=== PATIENT | male | born 1940 | race Caucasian/White ===

== ENCOUNTER → 2017-07-31 | Day surgery (SDC) | payer MEDICARE, BC ==
[~2017-07-31] MED LIST: ACUVITE; ALBUTEROL2.5 MG/31 INH; ARICEPT 5 MG TAB5 MG PO; ARICEPT10 M1 PO; ASPIR 8181 MG PO; ATIVAN0.5 MG PO; BALANCED B-100100 MG PO; CALCIUM 500 +1 EAC5 PO; COLACE100 MG PO; ELIQUIS5 MG PO; ESOMEPRAZOLE MA20 MG PO; FISH OIL 1,0001 EAC9 PO; FLOMAX0.4 MG PO; FOLBIC RF TABL1 EACH PO; FUROSEMIDE 40 M40 M1 PO; HYDROCODON-ACE1 EAC8 PO; KEFLEX500 M1 PO; KEPPRA XR500 MG PO; LEXAPRO 10 MG T10 M2 PO; LEXAPRO20 MG PO; LOPRESSOR25 PO; MAGNESIUM400 MG PO; MAVIK4 MG PO; MELATONIN3 MG PO; MIRALAX17 GM PO; NAMENDA XR7 MG PO; NEXIUM40 MG PO; NORCO 5-325 TA1 EACH PO; OCUVITE TABLET1 EAC1 PO; OLANZAPINE5 MG PO; OMEGA-31000 M1 PO; PERCOCET PO; POTASSIUM CHLO20 ME2 PO; REMERON15 MG PO; SENOKOT-S1 TA1 PO; SIMVASTATIN20 MG PO; SIMVASTATIN40 MG PO; SORINE 80 MG TA80 M1 PO; TRANDOLAPRIL4 MG PO; TYLENOL325 MG PO; VITAMIN B-12100 MCG PO; VITAMINC500 PO; VOLTAREN GEL 1100 G2 TOP; WELLBUTRIN 75 M75 M1 PO; XANAX 0.5 MG0.5 MG PO; ZINC10 MG PO; ZOLOFT25 MG PO
[2017-07-31 06:39] LABS: HEMATOCRIT 43.3 % (42.0-52.0); HEMOGLOBIN 14.1 gm/dL (14.0-18.0); MCH 29.5 pg (26.0-34.0); MCHC 32.6 g/dL (28.0-37.0); MCV 90.6 fL (80.0-100.0); MPV 8.1 fl. (7.2-11.1); RBC 4.78 mil/uL (4.50-6.00); RDW-CV 16.1 % (10.5-14.5); WBC 7.7 thou/uL (4.0-11.0)
[2017-07-31 06:57] LABS: CREATININE 0.9 mg/dL (0.6-1.3)
[2017-07-31 07:01] LABS: ALBUMIN 3.6 g/dL (3.4-5.0); TOTAL BILIRUBIN 0.8 mg/dL (<0.1-1.0); TOTAL PROTEIN 7.4 g/dL (6.4-8.2)
--- NOTE | 2017-07-31 15:44 | EKG ---
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: [facility] : 1940 Requested By: Ciarra Russ Order Number: [id number] MD: Lauri Blackwell Measurements Intervals [place] Rate: 59 P: 57 ID: 175 QRS: 84 QRSD: 101 T: 19 QT: 443 QTc: 439 Interpretive Statements Sinus rhythm Probable left atrial enlargement Borderline right axis deviation Baseline wander in lead(s) V6 Compared to ECG 08/03/2016 02:06:53 No significant changes Electronically Signed On 07-31-2017 15:44:44 DIGITAL RESEARCH ANALYST by Lauri Blackwell [email or web address] <ELECTRONICALLY SIGNED> By: Lauri Blackwell MD, [facility] 07/31/17 1544 0626 0626 Lauri Blackwell MD, [facility] /EPI
--- NOTE | 2017-08-01 12:29 | S ---
[address] [address] SURGICAL PATH RPT PROCEDURE Name: DANIE COFFEY Room: [facility]#: [id number] Admission: 07/31/17 Date of : 44 Discharge: Report #: [id number] Path Case #: [id number] PATHOLOGY REPORT COLLECTION DATE: 07/31/2017 RECEIVED DATE: 07/31/2017 SUBMITTING PHYS: Dr. Ciarra Russ OTHER PHYS: Dr. Gisell Gifford SPECIMEN(S) RECEIVED: A.Left cord lipoma * * * * * * * * * * * * FINAL DIAGNOSIS: Fibroadipose tissue "left cord lipoma": - Mature lobulated fibroadipose tissue consistent with a lipoma. (SHA:pit; 08/01/2017) PATHOLOGIST: Nick Gr M.D. REPORT ELECTRONICALLY SIGNED BY: Nick Gr M.D. DATE/TIME: 08/01/2017 12:28 * * * * * * * * * * * * GROSS PATHOLOGY: Received in formalin labeled "Danie Coffey, left cord lipoma," are two segments of fibroadipose tissue measuring 5.7 x 2.0 x 0.9 cm in aggregate dimensions. No nodules or lesions are identified. Hanger tissue is submitted in cassette A1. (SDY; 07/31/2017) CLINICAL HISTORY: Bilateral inguinal hernia INITIAL CPT CODE(S): A; 71611 Professional services performed by [facility] at [facility], [address] [place] [address]. Technical services performed by [facility] at [address] [place] [address], [address], [place] [address]. [facility] [address] [address] PHONE: [phone] [address] SURGICAL PATH RPT PROCEDURE Name: DANIE COFFEY Room: [facility].#: [id number] Admission: 07/31/17 Date of : 44 Discharge: Report #: [id number] Path Case #: [id number] DIRECTOR: Servando Piña M.D. * * * END OF REPORT * * *
--- NOTE | 2017-08-09 11:35 | OP ---
[facility] [address] [place] [address] OPERATIVE REPORT Name: SHERIN COFFEY Room: [facility]#: [id number] Admission: 07/31/17 Attend Phys: Ciarra Russ MD Discharge: Date of : 42 Report #: [id number] THIS REPORT FOR: //name// CC: Ciarra Gifford MD DATE OF SERVICE: 07/31/2017 PREOPERATIVE DIAGNOSIS: Bilateral inguinal hernia. POSTOPERATIVE DIAGNOSIS: Bilateral reducible and primary direct inguinal hernia. PROCEDURE: Bilateral inguinal hernia repair with mesh. SURGEON: Ciarra Russ M.D. NETWORK SUPPORT ANALYST: Joey Valdez DO ESTIMATED BLOOD LOSS: 20 mL. COMPLICATIONS: None. FINDINGS: Bilateral direct hernia with cord lipoma. SPECIMEN: Cord lipoma. DESCRIPTION OF PROCEDURE: Fully informed consent was obtained preoperatively, full discussion of risks, benefits, alternatives, questions answered. The patient understood risk of bleeding, infection, chronic pain, recurrence, injury to bowel or bladder, injury to cord structures, catastrophic complications up to and including cardiopulmonary failure and . The patient understood and wished to proceed, was present. She was involved with the informed consent and agreed as well. The patient was taken to the operating room. We prepped and draped in standard sterile fashion. We began on the right side. Began by making an incision along Jean-Claude line at the distal third between the ASIS and pubic tubercle, used Bovie to go down through Mary's, which went down to external oblique aponeurosis. A small kimberlee was made in the muscle with scalpel and opened up to the ring with [place] superiorly and inferiorly. The cord was circumferentially dissected. A Arcadia was placed around it, the cremaster away from the cord. I saw no primary indirect or peritoneal hernia sac. There was, however, very large direct reducible hernia defect. Next, I selected the mesh on the right side. The monofilament Bard polypropylene mesh was selected. It was trimmed to fit and anchored at the pubic tubercle with 2-0 Prolene running up the shelving edge. A second 2-0 [place] [address] OPERATIVE REPORT Name: COFFEYSHERIN Room: [facility]#: [id number] Admission: 07/31/17 Attend Phys: Ciarra uRss MD Discharge: Date of : 42 Report #: [id number] pubic tubercle once again and run up the medial side and then they were anchored together posteriorly. Next, I made sure that the overlapping leaflets were trimmed to fit to slightly abut the cord without compressing it. At this point, I irrigated copiously, making sure there was no evidence of bleeding. Next, I closed the external oblique aponeurosis with 2-0 Vicryl, 3-0 Vicryl I used to close Mary's in an interrupted manner. The 4-0 Monocryl was used to close the skin in running subcuticular fashion and Dermabond applied. Process was then repeated for the left hernia with the same findings, but an additional cord lipoma found and resected, and also a Ventrio ST Hernia Patch was trimmed to fit for the left inguinal defect as there were no additional Bard meshes available. The patient tolerated it well. Sponge, needle, instrument counts were correct at the end of the case. <ELECTRONICALLY SIGNED> By: Ciarra Russ MD 08/09/17 1135 1016 1102Dish Russ MD /nt
== END | disposition home or self-care (01) ==
LOC: M.SUR 06:05
PROVIDERS: Surgery
DX: K40.20 Bilateral inguinal hernia, without obstruction or gangrene, not specified as recurrent (principal); D17.6 Benign lipomatous neoplasm of spermatic cord; K64.9 Unspecified hemorrhoids; R56.9 Unspecified convulsions

== ENCOUNTER 2017-08-24 21:55 | Inpatient (IN) | payer MEDICARE, BC ==
[~2017-08-24] VITALS: Ht 172.7 cm; Wt 83.0 kg
[~2017-08-24 21:55] MED LIST changes: -COLACE100 MG PO; -KEFLEX500 M1 PO; -KEPPRA XR500 MG PO; -LEXAPRO 10 MG T10 M2 PO; -NORCO 5-325 TA1 EACH PO
[2017-08-24 22:05] VITALS: BP 161/97
[2017-08-24 22:37] LABS: URINE BILIRUBIN NEGATIVE (Negative); URINE BLOOD TRACE (Negative); URINE CLARITY CLEAR; URINE COLOR YELLOW; URINE GLUCOSE-RANDOM NEGATIVE (Negative); URINE KETONES NEGATIVE (Negative); URINE LEUKOCYTES-REFLEX NEGATIVE (Negative); URINE NITRITE-REFLEX NEGATIVE (Negative); URINE PROTEIN NEGATIVE (Negative); URINE SPECIFIC GRAVITY 1.015 (1.005-1.030); URINE UROBILINOGEN 0.2 E.U./dl (0.2-1.0)
[2017-08-24] MEDS ORDERED: WELLBUTRIN 75 M75 M1 PO (22:52)
[2017-08-24 22:54] LABS: ABSOLUTE BASOPHILS 0.1 thou/uL (0.0-0.2); ABSOLUTE EOSINOPHILS 0.2 thou/uL (0.0-0.7); ABSOLUTE LYMPHOCYTES 1.5 thou/uL (0.8-5.3); ABSOLUTE MONOCYTES 0.9 thou/uL (0.0-1.2); ABSOLUTE NEUTROPHILS 7.2 thou/uL (1.6-8.1); BASOPHILS 0.8 %; HEMATOCRIT 43.4 % (42.0-52.0); HEMOGLOBIN 14.5 gm/dL (14.0-18.0); MCH 30.1 pg (26.0-34.0); MCHC 33.5 g/dL (28.0-37.0); MCV 89.7 fL (80.0-100.0); MONOCYTES 9.2 %; MPV 8.4 fl. (7.2-11.1); NUCLEATED RBCS 0 /100WBC; PLATELET COUNT* 220 thou/uL (150-400); RBC 4.84 mil/uL (4.50-6.00); RDW-CV 15.1 % (10.5-14.5); WBC 9.9 thou/uL (4.0-11.0)
[2017-08-24 23:03] LABS: CALCIUM 8.9 mg/dL (8.5-10.1); CREATININE 0.9 mg/dL (0.6-1.3)
[2017-08-24 23:07] LABS: ALBUMIN 3.7 g/dL (3.4-5.0); TOTAL BILIRUBIN 0.9 mg/dL (<0.1-1.0)
[2017-08-25 02:22] VITALS: BP 143/83
[2017-08-25 03:10] VITALS: BP 152/75
[2017-08-25 07:05] LABS: HEMATOCRIT 40.3 % (42.0-52.0); HEMOGLOBIN 13.3 gm/dL (14.0-18.0); MCH 29.6 pg (26.0-34.0); MCHC 32.9 g/dL (28.0-37.0); MPV 8.2 fl. (7.2-11.1); RBC 4.48 mil/uL (4.50-6.00); WBC 8.8 thou/uL (4.0-11.0)
[2017-08-25 07:18] LABS: ALBUMIN 3.1 g/dL (3.4-5.0); CALCIUM 8.3 mg/dL (8.5-10.1); CREATININE 0.9 mg/dL (0.6-1.3); POTASSIUM 4.2 mmol/L (3.5-5.1); TOTAL BILIRUBIN 0.9 mg/dL (<0.1-1.0); TOTAL PROTEIN 6.9 g/dL (6.4-8.2)
[2017-08-25 07:30] VITALS: BP 129/75
[2017-08-25] MEDS ORDERED: LEXAPRO 10 MG T10 M2 PO (15:13)
[2017-08-25] MEDS ORDERED: ARICEPT 5 MG TAB5 MG PO (15:13)
[2017-08-25 16:51] VITALS: BP 130/71
[2017-08-25 20:10] VITALS: BP 114/60
[2017-08-26 05:31] LABS: CALCIUM 7.9 mg/dL (8.5-10.1); CREATININE 0.9 mg/dL (0.6-1.3); MAGNESIUM 1.9 mg/dL (1.8-2.4); POTASSIUM 4.5 mmol/L (3.5-5.1); TOTAL BILIRUBIN 0.9 mg/dL (<0.1-1.0); TOTAL PROTEIN 6.2 g/dL (6.4-8.2)
[2017-08-26 08:30] VITALS: BP 128/68
[2017-08-26 11:00] LABS: CHOLESTEROL 121 mg/dL (<200); HDL CHOLESTEROL 37 mg/dL (>40); LDL CHOLESTEROL 74 mg/dL (<100); TC:HDL 3.3 Ratio (Not establshd); TRIGLYCERIDE 50 mg/dL (<150); VLDL 10 mg/dL (<40)
[2017-08-26 11:01] LABS: SERUM ASSESSMENT Clear
[2017-08-26 15:30] VITALS: BP 127/66
[2017-08-26 20:00] VITALS: BP 129/78
[2017-08-27 05:35] LABS: HEMOGLOBIN 12.9 gm/dL (14.0-18.0); MCH 29.7 pg (26.0-34.0); MCV 89.9 fL (80.0-100.0); MPV 8.8 fl. (7.2-11.1); RBC 4.34 mil/uL (4.50-6.00); RDW-CV 14.7 % (10.5-14.5); WBC 6.3 thou/uL (4.0-11.0)
[2017-08-27 05:50] LABS: ALBUMIN 3.1 g/dL (3.4-5.0); CALCIUM 8.1 mg/dL (8.5-10.1); CREATININE 0.9 mg/dL (0.6-1.3); POTASSIUM 4.3 mmol/L (3.5-5.1); TOTAL BILIRUBIN 0.7 mg/dL (<0.1-1.0); TOTAL PROTEIN 6.4 g/dL (6.4-8.2)
[2017-08-27 08:00] VITALS: BP 136/72
[2017-08-27] MEDS ORDERED: NORCO 5-325 TA1 EACH PO (10:17)
[2017-08-27 10:19] VITALS: BP 136/72
--- NOTE | 2017-08-28 16:13 | CON ---
[address] [address] CONSULTATION Name: SHERIN COFFEY Room: [address]#: [id number] Admission: 08/25/17 Attend Phys: Raffy Davis, Discharge: 08/27/17 Date of : 42 Report #: [id number] THIS REPORT FOR: //name// CC: Gisell Davis DATE OF SERVICE: 08/26/2017 ADDENDUM Consult # is [phone] I have personally seen and examined the patient and reviewed labs and imaging studies. The patient with history of recurrent pancreatitis who had endoscopic ultrasound back in [address] Unger. This prompted gallbladder surgery and the patient reports that he was doing well until recently when he started having epigastric pain with mild nausea. Since this was keeping him up at night, he decided to come to hospital. Based on CT finding, he has mild stranding of the tail of the pancreas. The liver functions and lipase are normal. He is currently getting 150 mL of IV fluid and he started his diet. He reports to me that he has tolerated diet without any nausea or abdominal pain. The patient also reports that he is usually constipated. I will go ahead and initiate MiraLax 17 g p.o. at bedtime. I would like him to go home with this regimen. <ELECTRONICALLY SIGNED> By: Franklyn Moura MD 08/28/17 1613 1732 0628Franklyn Moura MD /damián
--- NOTE | 2017-08-28 16:13 | CON ---
[address] [address] CONSULTATION Name: SHERIN COFFEY Room: [address]#: [id number] Admission: 08/25/17 Attend Phys: Raffy Davis, Discharge: 08/27/17 Date of : 42 Report #: [id number] THIS REPORT FOR: //name// CC: Gisell Davis DICTATED BY: Yu Ceballos [facility] DATE OF SERVICE: 08/26/2017 Please note at the time of this dictation, the patient was seen and physically examined by myself. REASON FOR CONSULTATION: Abdominal pain, epigastric. HISTORY OF PRESENT ILLNESS: This is a 77-year-old male who recently underwent bilateral inguinal hernia repair who does have a history of pancreatitis back in 2016 in which he developed prior to laparoscopic cholecystectomy he did undergo an EUS with Dr. Unger on 06/2016, which was completely normal and he related his pancreatitis to possibly be related to microlithiasis. The patient states after his double hernia surgery, he has continued to have a little bit of discomfort, lower, but this lower groin discomfort continued as well as his upper epigastric continued. He states he is no longer experiencing any upper epigastric tenderness and currently he tolerated a regular diet for lunch. He denies any other issues of his GI tract at the present time. PAST MEDICAL HISTORY: Significant for hypertension, depression, anxiety and pancreatitis in the past. PAST SURGICAL HISTORY: He has recent bilateral inguinal hernia repair, cholecystectomy, heart valve repair and tonsillectomy. 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 He has had lithotripsy several times and left elbow repair. ALLERGIES: No known drug allergies. MEDICATIONS: From home, Senokot, simvastatin, aspirin, B12, Ocuvite, sotalol, Nexium, Zoloft, vitamin B, vitamin C, Os-Micky, zinc, Wellbutrin, Namenda, magnesium, omega 3, Xanax and Flomax. FAMILY HISTORY: Noncontributory. SOCIAL HISTORY: Denies any alcohol, tobacco or illegal drug use at this time. REVIEW OF SYSTEMS: Twelve-point review [place] [address] CONSULTATION Name: SHERIN COFFEY Room: [address]#: [id number] Admission: 08/25/17 Attend Phys: Raffy Davis, Discharge: 08/27/17 Date of : 42 Report #: [id number] except what is mentioned in the HPI. PHYSICAL EXAMINATION: VITAL SIGNS: Temperature 36.6, pulse 61, respirations 18 and blood pressure 128/68. HEART: Regular rate and rhythm. LUNGS: Clear. ABDOMEN: Soft, positive bowel sounds in all four quadrants with no masses or tenderness noted. He does have some bilateral inguinal hernia discomfort due to his recent surgery. LABORATORY DATA: Sodium 139, potassium 4.5, chloride 104, CO2 31, BUN is 13, creatinine 0.6, GFR is 82 and glucose is 92. Lipase is 193. Hemoglobin is 13.3, hematocrit 40.3, white count is 8.8 and platelets is 192. CT done showed some sigmoid diverticulosis with very mild hazing and some peripancreatic stranding noted at the distal body and tail of the pancreas. No ductal dilatation noted. IMPRESSION: 1. Abdominal pain. 2. Pancreatitis history back in 2016. 3. Recent bilateral hernia repair. PLAN: 1. Continue his IV fluids at 150 mL an hour. 2. Diet as tolerated. 3. Further recommendations to be made after Dr. Moura sees the patient later today. Thank you for allowing us to participate in this patient's care. Please do not hesitate to call with any questions in regard to this consult. I have personally seen and examined the patient and reviewed labs and imaging studies. The patient with history of recurrent pancreatitis who had endoscopic ultrasound back in [address] Unger. This prompted gallbladder surgery and the patient reports that he was doing well until recently when he started having epigastric pain with mild nausea. Since this was keeping him up at night, he decided to come to hospital. Based on CT finding, he has mild stranding of the tail of the pancreas. The liver functions and lipase are normal. He is currently getting 150 mL of IV fluid and he started his diet. He reports to me that he has tolerated diet without any nausea or abdominal pain. The [place] [address] CONSULTATION Name: SHERIN COFFEY Room: [address]#: [id number] Admission: 08/25/17 Attend Phys: Raffy Davis, Discharge: 08/27/17 Date of : 42 Report #: [id number] usually constipated. I will go ahead and initiate MiraLax 17 g p.o. at bedtime. I would like him to go home with this regimen. <ELECTRONICALLY SIGNED> By: Franklyn Moura MD 08/28/17 1613 1249 [id number] Moura MD /nt
== END 2017-08-27 12:06 | disposition home or self-care (01) | DRG 439 ==
LOC: M.ERS 21:55 → M.TBA-ER 08-25 01:22 → M.ORTHSURG 08-25 01:22
PROVIDERS: Emergency Medicine; Internal Medicine; ADMIT Family Medicine
DX: K85.90 Acute pancreatitis without necrosis or infection, unspecified (principal); I48.92 Unspecified atrial flutter; F41.9 Anxiety disorder, unspecified; F32.9 Major depressive disorder, single episode, unspecified; F03.90 Unspecified dementia, unspecified severity, without behavioral disturbance, psychotic disturbance, mood disturbance, and anxiety; K82.8 Other specified diseases of gallbladder; D64.9 Anemia, unspecified; K40.90 Unilateral inguinal hernia, without obstruction or gangrene, not specified as recurrent; I10 Essential (primary) hypertension; Z90.49 Acquired absence of other specified parts of digestive tract; Z82.49 Family history of ischemic heart disease and other diseases of the circulatory system; Z85.46 Personal history of malignant neoplasm of prostate; Z79.82 Long term (current) use of aspirin; Z79.899 Other long term (current) drug therapy

== ENCOUNTER 2018-01-17 15:55 | Inpatient (IN) | payer MEDICARE, BC ==
[~2018-01-17] VITALS: Ht 172.7 cm; Wt 79.8 kg
[~2018-01-17 15:55] MED LIST changes: -COLACE100 MG PO; -KEFLEX500 M1 PO; -KEPPRA XR500 MG PO
[2018-01-17 16:04] VITALS: BP 174/102
[2018-01-17] MEDS ORDERED: COLACE100 MG PO (16:12)
[2018-01-17 16:18] LABS: ABSOLUTE BASOPHILS 0.1 thou/uL (0.0-0.2); ABSOLUTE EOSINOPHILS 0.1 thou/uL (0.0-0.7); ABSOLUTE LYMPHOCYTES 1.6 thou/uL (0.8-5.3); ABSOLUTE NEUTROPHILS 9.5 thou/uL (1.6-8.1); BASOPHILS 0.5 %; EOSINOPHILS 0.7 %; HEMATOCRIT 45.9 % (42.0-52.0); HEMOGLOBIN 14.9 gm/dL (14.0-18.0); MCH 28.6 pg (26.0-34.0); MCHC 32.5 g/dL (28.0-37.0); MCV 87.8 fL (80.0-100.0); MPV 8.4 fl. (7.2-11.1); NUCLEATED RBCS 0 /100WBC; PLATELET COUNT* 223 thou/uL (150-400); POLYS 77.8 %; RBC 5.23 mil/uL (4.50-6.00); RDW-CV 17.6 % (10.5-14.5); WBC 12.2 thou/uL (4.0-11.0)
[2018-01-17 16:22] LABS: URINE BILIRUBIN NEGATIVE (Negative); URINE BLOOD NEGATIVE (Negative); URINE CLARITY CLEAR; URINE COLOR YELLOW; URINE GLUCOSE-RANDOM NEGATIVE (Negative); URINE KETONES NEGATIVE (Negative); URINE LEUKOCYTES-REFLEX NEGATIVE (Negative); URINE NITRITE-REFLEX NEGATIVE (Negative); URINE PROTEIN NEGATIVE (Negative); URINE SPECIFIC GRAVITY 1.025 (1.005-1.030); URINE UROBILINOGEN 0.2 E.U./dl (0.2-1.0)
[2018-01-17 16:47] LABS: ANION GAP 10 mmol/L (7-16); BUN 18 mg/dL (7-18); CALCIUM 9.6 mg/dL (8.5-10.1); CHLORIDE 100 mmol/L (98-107); CO2 29 mmol/L (21-32); CREATININE 0.9 mg/dL (0.6-1.3); GLUCOSE 97 mg/dL (70-99); POTASSIUM 3.7 mmol/L (3.5-5.1); SODIUM 139 mmol/L (136-145)
[2018-01-17 16:54] LABS: ALBUMIN 4.4 g/dL (3.4-5.0); ALKALINE PHOSPHATASE 95 U/L (46-116); SGOT 19 U/L (15-37); SGPT 24 U/L (30-65); TOTAL BILIRUBIN 1.1 mg/dL (<0.1-1.0); TOTAL PROTEIN 8.9 g/dL (6.4-8.2); TROPONIN-I LEVEL <0.06 ng/mL (<0.06)
[2018-01-17 17:12] LABS: LIPASE 5297 U/L (73-393)
--- NOTE | 2018-01-17 17:25 | NUR ---
PT AMBULATED TO BATHROOM WITHOUT INCIDENT
[2018-01-17 18:25] VITALS: BP 174/85
--- NOTE | 2018-01-17 18:46 | NUR ---
PATIENT ARRIVED TO THE UNIT AT 1845. ALERT AND ORIENTED X3-4. PATIENT IS VERY FORGETFUL, REPEATEDLY ASKING THE SAME QUESTIONS OVER AND OVER. FLUIDS RUNNING UPON ARRIVAL. PATIENT ORIENTED TO ROOM AND INSTRUCTED TO USE CALL LIGHT FOR NEEDS. NURSING WILL CONTINUE TO MONITOR.
[2018-01-17 21:45] VITALS: BP 170/96
[2018-01-18 04:00] LABS: HEMATOCRIT 42.3 % (42.0-52.0); HEMOGLOBIN 13.9 gm/dL (14.0-18.0); MCH 29.1 pg (26.0-34.0); MCHC 32.9 g/dL (28.0-37.0); MCV 88.3 fL (80.0-100.0); MPV 8.9 fl. (7.2-11.1); RBC 4.78 mil/uL (4.50-6.00); RDW-CV 17.3 % (10.5-14.5); WBC 10.9 thou/uL (4.0-11.0)
[2018-01-18 04:18] LABS: INR 1.1; PROTIME 11.1 Seconds (9.20-11.50)
[2018-01-18 04:47] LABS: ALBUMIN 3.5 g/dL (3.4-5.0); CALCIUM 8.2 mg/dL (8.5-10.1); CREATININE 0.7 mg/dL (0.6-1.3); MAGNESIUM 1.8 mg/dL (1.8-2.4); POTASSIUM 4.2 mmol/L (3.5-5.1); TOTAL BILIRUBIN 1.3 mg/dL (<0.1-1.0); TOTAL PROTEIN 6.5 g/dL (6.4-8.2)
--- NOTE | 2018-01-18 06:07 | NUR ---
PATIENT HAS BEEN VERY RESTLESS DURING THE NIGHT AND CONFUSED AND FORGETFUL AT TIMES. VSS ON RA, ALTHOUGH BP ELEVATED. PATIENT HAS REMAINED NPO, BUT MAY TAKE MEDICATIONS WITH SIPS OF WATER PER DR. ORDERS. PATIENT HAD C/O SLIGHT HEADACHE, AND TYLENOL GIVEN. PATIENT ALSO HAD C/O NAUSEA BUT NO VOMITING NOTED. ZOFRAN GIVEN TO HELP WITH NAUSEA. PATIENT URINATING ADEQUATELY USING BEDSIDE URINAL. IV IN RIGHT AC-NS @ 250ML/HR. FALL PRECAUTIONS IN PLACE AND HOURLY ROUNDS MADE. WILL CONTINUE WITH PLAN OF CARE AND NURSING TO MONITOR.
[2018-01-18 08:15] VITALS: BP 143/84
--- NOTE | 2018-01-18 12:49 | EKG ---
[place] [address] ELECTROCARDIOGRAM REPORT Name: SHERIN COFFEY Room: [address] [facility]#: [id number] Admission: 01/17/18 Attend Phys: Esequiel Stanford MD Discharge: Date of : 42 Report #: [id number] THIS REPORT FOR: //name// [facility] ED Test Date: 2018-01-17 Test Time: 16:11:45 Pat Name: SHERIN COFFEY Department: Room: Gender: Tents Assembler: Tavia NUNEZ : 1940 Requested By: Judith Walker Order Number: [id number] MD: Lorne Riley Measurements Intervals [place] Rate: 80 P: 47 [place]: 157 QRS: 87 QRSD: 108 T: 8 QT: 372 QTc: 430 Interpretive Statements Sinus rhythm Probable left atrial enlargement Borderline right axis deviation Compared to ECG 07/31/2017 06:26:40 No significant changes Electronically Signed On 01-18-2018 12:49:18 CDT by Lorne Riley [email or web address] <ELECTRONICALLY SIGNED> By: Lorne Riley MD, [facility] 01/18/18 1249 1611 1611 Lorne Riley MD, [facility] /EPI
[2018-01-18 17:46] VITALS: BP 146/77
--- NOTE | 2018-01-18 19:28 | NUR ---
PATIENT REMAINED ALERT TO SELF. PATIENT STAYS IN STATE OF CONFUSION. PATIENT IS CONVINCED HE HAS CANCER. HE ALSO HAD NAUSEA ALL DAY. ZOFRAN DID NOT WORK. PHENERGREN SEEMED TO WORK EVEN THOUGH PATIENT STILL COMPLAINED OF NAUSEA. TYLENOL GIVEN FOR HEADACHE. MORPHINE GIVEN FOR ABDOMINAL PAIN. VOIDED WITHOUT ISSUE. IV CLEAN, FLUIDS INFUSING. TAKES PILLS VERY SLOWLY. ALSO THE PATIENT IS CONVINCED HE IS DYING OF CANCER DUE TO THE NAUSEA AND PAIN. NURSE TRIED MULTIPLE TIMES TO EDUCATE PATIENT ON WHY HE IS NAUSEOUS AND IN PAIN. PATIENT HAS NO INTEREST IN WHAT NURSE IS TELLING HIM. PATIENT NEEDS A LOT OF ATTENTION. CASE MANAGEMENT CONSULTED TO GET HELP. SHE HAS BEEN CARING FOR HIM ALONE FOR LAST 3 AND 1/2 YEARS. IS EXHAUSTED AND CANNOT CONTINUE CARE ALONE. COMPLETED HOURLY ROUNDING. CALL LIGHT WITHIN REACH. WILL CONTINUE TO MONITOR.
--- NOTE | 2018-01-19 05:31 | NUR ---
THIS NURSE ASSUMES CARE OF PT 01/18/18 AT 1930, PT IS ALERT AND ORIENTED X4, PT IS CONFUSED INTERMITTENTLY, REPEATS HIMSELF OFTEN AND FORGETFUL, PT STANDS UP AT BED SIDE TO USE URINAL FREQUENTLY, 1ST BLADDER SCAN SHOWS 90ML OF URINE, AT 0430 PT BLADDER SCANNED AFTER ATTEMPTING TO VOID IN URINAL, BLADDER SCAN SHOW 420MLS OF URINE, DR JACOBS CALLED, RECEIVED NEW ORDERS, SEE POS, PT STRAIGHT CATHED AT 0500, INITIAL OUTPUT IS 35MLS, ODORLESS, CONCENTRATED, [place] COLORED URINE, CATHETER REMOVED PER PHYSICIAN ORDER, PT CONTINUES TO FEEL THE URGE TO VOID IMMEDIATELY AFTER CATHETER REMOVAL, PT CONTINUES ON IV FLUIDS AND IS NPO. PT HAS BEEN MEDICATED FOR UPPER LEFT ABD PAIN THROUGHOUT THE NIGHT, MEDICATION IS EFFECTIVE, PT CONTINUES TO COMPLAIN OF LUQ PAIN THIS AM PT BEING ASSISTED BACK TO BED FRO BSC BY PCT AT THIS TIME, LABS PENDING
[2018-01-19 06:02] LABS: HEMATOCRIT 41.9 % (42.0-52.0); HEMOGLOBIN 13.5 gm/dL (14.0-18.0); MCH 28.6 pg (26.0-34.0); MCHC 32.3 g/dL (28.0-37.0); MCV 88.8 fL (80.0-100.0); MPV 8.6 fl. (7.2-11.1); NUCLEATED RBCS 0 /100WBC; PLATELET COUNT* 206 thou/uL (150-400); RBC 4.72 mil/uL (4.50-6.00); RDW-CV 17.5 % (10.5-14.5); WBC 19.7 thou/uL (4.0-11.0)
[2018-01-19 06:46] LABS: ABSOLUTE LYMPHOCYTES 0.8 thou/uL (0.8-5.3); ABSOLUTE MONOCYTES 1.8 thou/uL (0.0-1.2); ABSOLUTE NEUTROPHILS 17.1 thou/uL (1.6-8.1)
[2018-01-19 06:47] LABS: ANISOCYTOSIS 1+; MICROCYTES 1+; PLATELET ESTIMATE ADEQUATE; POIKILOCYTOSIS 1+
[2018-01-19 08:47] VITALS: BP 121/64
[2018-01-19 16:00] VITALS: BP 135/68
--- NOTE | 2018-01-19 17:10 | NUR ---
ASSUMED CARE OF PATIENT AFTER MORNING REPORT. ALERT AND ORIENTED X4. ASSESSMENT COMPLETED AND CHARTED. VSS ON ROOM AIR, PATIENT KEEPS TAKING OFF OXYGEN BUT 02 SATS ARE STABLE. PATIENT HAS MEMORY ISSUES, ASKS SAME QUESTIONS AND MAKES SAME STATEMENTS REPEATEDLY. PATIENT IS IMPULSIVE AND DOES NOT FOLLOW COMMANDS WELL WITHOUT FREQUENT REINFORCEMENT. FLUIDS INFUSING ORDERED. PATIENT HAS NOT URINATED MUCH THIS SHIFT, BLADDER SCANS DONE TO CHECK RESIDUAL. ORDERS TO STRAIGHT CATH OVER 800 RESIDUAL, PATIENT HAS REMAINED BELOW 200 THIS SHIFT. PAIN HAS BEEN MANAGED WITH IV PAIN MEDICATION PATIENT REMAINS NPO. BED ALARM IS ON, HOURLY ROUNDS MAINTAINED, CALL LIGHT IN REACH, NURSING WILL CONTINUE TO MONITOR.L
--- NOTE | 2018-01-19 19:44 | NUR ---
DR WALTON NOTIFIED PT HAS HAD VOIDED 100MLS DARK CONCENTRATED URINE THE PAST SHIFT, PT IS NPO, AND PT HAS IV FLUIDS RUNNING AT 150 ML/HR, PT IS HAVING URGENCY AND COMPLAINING OF BURNING, UA ORDERED, KEEP FLUIDS RUNNING, NO CHANGE IN DIET ORDERS, NOT DIURESIS AT THIS TIME, MO NEED FOR ACCUCHECKS AT THIS TIME
[2018-01-20 04:13] LABS: HEMATOCRIT 38.1 % (42.0-52.0); HEMOGLOBIN 12.1 gm/dL (14.0-18.0); MCH 28.6 pg (26.0-34.0); MCHC 31.8 g/dL (28.0-37.0); MPV 8.7 fl. (7.2-11.1); RBC 4.23 mil/uL (4.50-6.00); RDW-CV 17.8 % (10.5-14.5); WBC 14.9 thou/uL (4.0-11.0)
[2018-01-20 04:41] LABS: ALBUMIN 2.5 g/dL (3.4-5.0); CALCIUM 7.8 mg/dL (8.5-10.1); CREATININE 0.8 mg/dL (0.6-1.3); POTASSIUM 3.8 mmol/L (3.5-5.1); TOTAL PROTEIN 6.2 g/dL (6.4-8.2)
--- NOTE | 2018-01-20 06:41 | NUR ---
pt alert and oriented this morning,forgetful at times, pt attempts to climb over siderails to get out of bed twice during this shift, bed alarm was on, pt had less complaints of pain during this shift, continues to have urgency, 140mls concentrated nely uriune out this shift, pt contiinues on IV fluids and is NPO, pt compliant with keeping nc in place throughout the shift, urine sent down for UA, resting in bed watching television, call light within reach, bed alarm on
[2018-01-20 08:45] VITALS: BP 119/56
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
[2018-01-20 16:27] VITALS: BP 122/58
[2018-01-20 20:45] VITALS: BP 112/57
[2018-01-21] VITALS: BP 125/65
--- NOTE | 2018-01-21 05:50 | NUR ---
PATIENT REMAINS ALERT AND ORIENTED X4 WITH TIMES OF BEING FORGETFUL THROUGHOUT THE NIGHT. VITAL SIGNS STABLE ON 2 LITERS OF OXYGEN. IV PATENT IN THE LEFT FOREARM INFUSING AT 150 ML/HR. REPOSITIONING SELF IN BED. TRANSFERS WITH STANDBY ASSIST TO USE THE URINAL AT BEDSIDE. MEDICATIONS GIVEN PER ORDERS. RESTING COMFORTABLY THROUGHOUT THE NIGHT. DENIES PAIN OR NAUSEA. FALL PRECAUTIONS IN PLACE. BED ALARM IN PLACE. CALL LIGHT WITHIN REACH. NURSING WILL CONTINUE TO MONITOR.
[2018-01-21 08:00] VITALS: BP 131/76
[2018-01-21 09:08] LABS: URINE BILIRUBIN NEGATIVE (Negative); URINE BLOOD TRACE (Negative); URINE CLARITY CLEAR; URINE COLOR YELLOW; URINE GLUCOSE-RANDOM NEGATIVE (Negative); URINE KETONES NEGATIVE (Negative); URINE LEUKOCYTES NEGATIVE (Negative); URINE NITRITE NEGATIVE (Negative); URINE PROTEIN NEGATIVE (Negative); URINE UROBILINOGEN 0.2 E.U./dl (0.2-1.0)
[2018-01-21 11:53] VITALS: BP 131/76
--- NOTE | 2018-01-21 12:00 | NUR ---
PT.TO BE DISCHARGED TODAY WITH HOME HEALTH. CALLED TO DISCUSS. SHE WAS SURPRISED HE WAS BEING DISCHARGED TODAY. EXPLAINED HE IS EATING A REG.DIET,HAVING NO PAIN OR NAUSEA. SHE SAID SHE WOULD BE IN TO GET HIM SHORTLY. SHE WOULD LIKE TO USE [facility] FOR HOME [facility]ALTH. WILL NOTIFY [facility]. FAXED ORDERS,FACE SHEET,FACE TO FACE FORM AND H&P TO [facility] [phone].
[2018-01-21 14:16] VITALS: BP 131/76
--- NOTE | 2018-01-21 14:53 | NUR ---
PATIENT LEFT UNIT AT 1550. ALERT AND ORIENTED X4. UP WITH STAND BY ASSIST IN ROOM. IV DC'D. PAIN BEING MANAGED WITH PO PAIN MEDICATION. DENIES NAUSEA. ALL PERSONAL ITEMS LEFT WITH PATIENT. DISCHARGE INSTRUCTIONS SENT WITH PATIENT. VSS ON ROOM AIR. HOURLY ROUNDS HAVE BEEN MAINTAINED THROUGHOUT SHIFT. CALL LIGHT IS WITHIN REACH. NURSING WILL CONTINUE TO MONITOR.
[2018-01-21 14:56] VITALS: BP 131/76
--- NOTE | 2018-01-21 14:59 | NUR ---
PATIENT LEFT UNIT AT 1550. ALERT AND ORIENTED X4. UP STAND BY ASSIST IN ROOM. IV DC'D. PAIN BEING MANAGED WITH PO PAIN MEDICATION. DENIES NAUSEA. ALL PERSONAL ITEMS LEFT WITH PATIENT. DISCHARGE INSTRUCTIONS SENT WITH PATIENT. VSS ON ROOM AIR. HOURLY ROUNDS HAVE BEEN MAINTAINED THROUGHOUT SHIFT. LEFT WITH SPOUSE VIA CAR.
[2018-01-21 15:05] VITALS: BP 131/76
== END 2018-01-21 14:50 | disposition home health service (06) | DRG 439 ==
LOC: M.ERS 15:55 → M.ORTHSURG 18:01 → M.TBA-ER 18:01 → M.ORTHSURG 18:22
PROVIDERS: Family Medicine; Physician Assistant; ADMIT Internal Medicine
DX: K85.90 Acute pancreatitis without necrosis or infection, unspecified (principal); I48.92 Unspecified atrial flutter; R65.10 Systemic inflammatory response syndrome (SIRS) of non-infectious origin without acute organ dysfunction; E44.0 Moderate protein-calorie malnutrition; F03.90 Unspecified dementia, unspecified severity, without behavioral disturbance, psychotic disturbance, mood disturbance, and anxiety; F41.9 Anxiety disorder, unspecified; F32.9 Major depressive disorder, single episode, unspecified; I10 Essential (primary) hypertension; R33.9 Retention of urine, unspecified; Z79.1 Long term (current) use of non-steroidal anti-inflammatories (NSAID); Z79.82 Long term (current) use of aspirin; Z79.899 Other long term (current) drug therapy; Z90.49 Acquired absence of other specified parts of digestive tract; Z82.49 Family history of ischemic heart disease and other diseases of the circulatory system; Z87.828 Personal history of other (healed) physical injury and trauma; Z68.26 Body mass index [BMI] 26.0-26.9, adult

== ENCOUNTER → 2018-01-17 | Outpatient (CLI) | payer MEDICARE, BC ==
[~2018-01-17] MED LIST changes: +COLACE100 MG PO; +KEFLEX500 M1 PO; +KEPPRA XR500 MG PO; +LEXAPRO 10 MG T10 M2 PO; +NORCO 5-325 TA1 EACH PO
== END ==
LOC: M.ULTRA 10:07
DX: R10.30 Lower abdominal pain, unspecified (principal); R14.0 Abdominal distension (gaseous); R10.2 Pelvic and perineal pain

== ENCOUNTER 2018-01-25 16:42 | Inpatient (IN) | payer MEDICARE, BC ==
[~2018-01-25] VITALS: Ht 152.4 cm; Wt 85.7 kg
[~2018-01-25 16:42] MED LIST changes: +COLACE100 MG PO
[2018-01-25 16:50] VITALS: BP 164/95
[2018-01-25 17:14] LABS: ABSOLUTE BASOPHILS 0.1 thou/uL (0.0-0.2); ABSOLUTE EOSINOPHILS 0.1 thou/uL (0.0-0.7); ABSOLUTE LYMPHOCYTES 1.1 thou/uL (0.8-5.3); ABSOLUTE MONOCYTES 0.8 thou/uL (0.0-1.2); ABSOLUTE NEUTROPHILS 6.2 thou/uL (1.6-8.1); BASOPHILS 0.8 %; EOSINOPHILS 1.2 %; HEMOGLOBIN 13.7 gm/dL (14.0-18.0); LYMPHOCYTES 13.6 %; MCH 28.5 pg (26.0-34.0); MCHC 32.7 g/dL (28.0-37.0); MCV 87.3 fL (80.0-100.0); MONOCYTES 9.7 %; MPV 8.2 fl. (7.2-11.1); NUCLEATED RBCS 0 /100WBC; PLATELET COUNT* 340 thou/uL (150-400); POLYS 74.7 %; RBC 4.81 mil/uL (4.50-6.00); RDW-CV 17.8 % (10.5-14.5); WBC 8.3 thou/uL (4.0-11.0)
[2018-01-25 17:18] LABS: POC CA IONIZED 4.3 mg/dL (4.5-5.3); POC CREATININE 0.8 mg/dL (0.6-1.3); POC HEMOGLOBIN 14.3 g/dL (12.0-17.0); POC POTASSIUM 2.9 mmol/L (3.5-4.9)
[2018-01-25 17:20] LABS: ANION GAP 8 mmol/L (7-16); BUN 10 mg/dL (7-18); CALCIUM 8.6 mg/dL (8.5-10.1); CHLORIDE 102 mmol/L (98-107); CO2 31 mmol/L (21-32); CREATININE 0.9 mg/dL (0.6-1.3); GLUCOSE 133 mg/dL (70-99); SODIUM 141 mmol/L (136-145)
[2018-01-25 17:22] LABS: POTASSIUM 2.9 mmol/L (3.5-5.1)
[2018-01-25 17:24] LABS: APTT 29.2 Seconds (25.0-31.3); INR 1.2; PROTIME 11.5 Seconds (9.20-11.50)
[2018-01-25 17:27] LABS: ALBUMIN 3.1 g/dL (3.4-5.0); ALKALINE PHOSPHATASE 82 U/L (46-116); SGOT 27 U/L (15-37); SGPT 41 U/L (30-65); TOTAL BILIRUBIN 0.6 mg/dL (<0.1-1.0); TOTAL PROTEIN 7.3 g/dL (6.4-8.2); TROPONIN-I LEVEL <0.06 ng/mL (<0.06)
--- NOTE | 2018-01-25 17:58 | NUR ---
PT CAME IN TO THE ER SIPPING ON WATER, PT'S SPOUSE STATES THAT PT OFTEN "SIPS" ON WATER THROUGHOUT DAY AND HAS ALWAYS HAD A COUGH WHEN DRINKING OR STATES TO HER HE CAN NOT DRINK "FULL" DRINKS. WHILE PT WAS DRINKING WATER BEFORE STROKE CODE CALLED STATED HIS DRINKING OF WATER WAS NORMAL ALWAYS.
[2018-01-25 19:43] VITALS: BP 182/86
[2018-01-25 20:30] VITALS: BP 148/94
[2018-01-25 20:46] LABS: CALCIUM 8.7 mg/dL (8.5-10.1); CREATININE 0.8 mg/dL (0.6-1.3); POTASSIUM 3.7 mmol/L (3.5-5.1)
[2018-01-26] VITALS: BP 154/96
--- NOTE | 2018-01-26 02:14 | NUR ---
received pt on the floor from er at 2030 on 01/25. PT CAME ON FLOOR ACCOMPANIED BY ER NURSE AND HIS ON A STRETCHER. HE IS ALERT AWAKE ORIENTED X4, A LITTLE FORGETFUL AND SPACES OUT DURING CONVERSATION. STATES THAT HE HAS BEE SPACING OUT SINCE TWO DAYS AGO. VITALS SIGNS TAKEN . WITHIN NORMAL LIMIT. PT SATURATION IS 97% ON RA. NIH SCORE PERFORMED AT BEDSIDE, HE SCORED 0. ASSESSMENT PERFORMED. REFER TO CHART.PT SPACES OUT WHEN QUESTIONS ARE ASKED. AND TAKE A LONG TIME TO ANSWER BACK. PT COMPLAINS OF HEADACHE LEVEL 5 AND NECK DISCOMFORT. PILLOW WAS PLACED UNDER NECK TO RELIEVE PRESSURE PT ALSO COMPLAINS OF PAIN IN TH E ABDOMEN THAT HAS BEEN GOING ON INTERMITTENTLY SINCE 3 WEEKS. DOES NOT HAVE PAIN AT THIS TIME. ABD AREA WAS PALPATED AND PT COMPLAINS THAT PAIN IN WORST IN L LOWER QUADRANT WERE HE HAS AN INCISION FROM PREVIOUS KIDNEY SX. PAIN RADIATES IN LOWER ABDOMEN LATERALLY. DR JACOBS WAS CONSULTED ABOUT THE SPACING OUT, THE ABD PAIN AND THE HEADACHE. DR JACOBS STATED THAT NEURO IS CONSULTED FOR THE MORNING. CALL WAS PLACED FOR NEURO CONSULT, SPOKE WITH ANSWERING SERVICE. AWAITING CALL BACK. ORDER RECEIVED FOR CT OF ABD AND PELVIS AND GI CONSULT. ALSO GOT SOME TYLENOL ORDERED FOR THE HEADACHE. AFTER ADMINITERING TH E TYLENOL.PT SAID THAT HE FEELS NAUSEOUS, HEAD OF BED ELEVATED, PT STARTED TO SHAKE AND SAYS HE IS NOT FEELING GOOD, HOLDING HIS HEAD. PT WASA TURNED TO THE SIDE, O2 7 L ADMISTERED VIA NC. MOUTH SUNCTIONING PERFORMED, HE LOST CONSIOUSNESS FOR LESS THAN 1 MINUTE, CODE ASSIST WAS CALLED, PT GAIN CONSIOUNESS RAPIDELY AFTER O2 ADMISTERED. HIS VITALS WERE CHECHED. ERIC ARE WITHIN NORMAL LIMT. SATURATION ON 7 L NC WAS 98%. DR JACOBS ORDERED KEPPRA 500MG WHICH IS RUNNING AT THIS MOMENT. PT PUT ON SEIZURE PRECAUTION. SUCTIOING DEVICE, OXYGEN AT BEDSIDE, SIDERAILS UP X4. HE IS PRESENTLY NPO FOR CT SCHEDULE CT OF ABDOMEN AND PELVIS. WAS CALLED REGARNIGN THE SEIZURE EVENT. MESSAGE LEFT. PT STATED THAT TYLENOL IS WORKING OK FOR HIS HEADACHE. CURRENTLY SLEEPING ON HIS SIDE. WILL CONTINUE TO MONITOR.
[2018-01-26 04:00] VITALS: BP 130/64
[2018-01-26 05:42] LABS: HEMATOCRIT 39.9 % (42.0-52.0); HEMOGLOBIN 12.9 gm/dL (14.0-18.0); MCH 28.2 pg (26.0-34.0); MCHC 32.2 g/dL (28.0-37.0); MCV 87.4 fL (80.0-100.0); MPV 8.7 fl. (7.2-11.1); RBC 4.56 mil/uL (4.50-6.00); RDW-CV 17.8 % (10.5-14.5); WBC 10.1 thou/uL (4.0-11.0)
[2018-01-26 05:48] LABS: ANION GAP 8 mmol/L (7-16); BUN 9 mg/dL (7-18); CALCIUM 8.7 mg/dL (8.5-10.1); CHLORIDE 103 mmol/L (98-107); CO2 31 mmol/L (21-32); CREATININE 0.8 mg/dL (0.6-1.3); GLUCOSE 115 mg/dL (70-99); MAGNESIUM 2.2 mg/dL (1.8-2.4); SODIUM 142 mmol/L (136-145); TROPONIN-I LEVEL <0.06 ng/mL (<0.06)
--- NOTE | 2018-01-26 06:57 | NUR ---
PT HAS BAD RASHES INPEINEUM AREA. PICTURES TAKEN PLACED IN CHART. WOUND CARE COUNSULTED.
[2018-01-26 07:00] VITALS: BP 146/80
--- NOTE | 2018-01-26 11:15 | NUR ---
RECEIVED REPORT FROM SAMIR HAAS. ASSUMED CARE OF PT AROUND 0730. PT A&O X4 BUT VERY FORGETFUL AT TIMES. VSS. O2 SAT 98% ON 2L PER NC. 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 AM ASSESSMENT AND VITALS COMPLETED CHARTED. PT DOES NOT RECALL SEIZURE FROM LAST NIGHT. PT REPORTS NECK PAIN 11/05. REPOSITIONING PROVIDED TO PT RELIEF. PT NPO FOR CT OF ABDOMEN/PELVIS. EEG GOING ON RIGHT NOW. MORNING MEDICATIONS HELD EXCEPT UNTIL POST CT, EXCEPT SOTALOL. PT INFORMED OF PLAN OF CARE, COMMUNICATES UNDERSTANDING. SEIZURE PRECAUTIONS REMAIN IN PLACE. HIGH RISK FALL PRECAUTIONS ARE IN PLACE. CALL LIGHT IS WITHIN REACH. WCTM.
[2018-01-26 11:28] VITALS: BP 136/69
--- NOTE | 2018-01-26 14:46 | EKG ---
[place] [address] ELECTROCARDIOGRAM REPORT Name: SHERIN COFFEY Room: [address] IN [facility].#: [id number] Admission: 01/25/18 Attend Phys: Raffy Davis, Discharge: Date of : 44 Report #: [id number] THIS REPORT FOR: //name// [facility] ED Test Date: 2018-01-25 Test Time: 17:07:03 Pat Name: SHERIN COFFEY Department: Room: Gender: Medical Coordinator Pesticide Use: : 1940 Requested By: Bruno Yanes Order Number: [id number] MD: Cisco Emmanuel Measurements Intervals [place] Rate: 93 P: 48 [place]: 153 QRS: 92 QRSD: 97 T: 22 QT: 436 QTc: 543 Interpretive Statements Sinus rhythm Atrial premature complex Probable left atrial enlargement Right axis deviation Borderline repolarization abnormality Prolonged QT interval Compared to ECG 01/17/2018 16:11:45 Atrial premature complex(es) now present Prolonged QT interval now present Electronically Signed On 01-26-2018 14:46:40 CDT by Cisco Emmanuel [email or web address] <ELECTRONICALLY SIGNED> By: Cisco Emmanuel MD, FACC 01/26/18 1446 1707 1707 Cisco Emmanuel MD, [facility] /EPI
[2018-01-26 15:33] VITALS: BP 121/44
--- NOTE | 2018-01-26 18:19 | NUR ---
VSS. O2 SAT >90% ON 2L PER NC. PT REMAINS A&OX4 BUT FORGETFUL AND ASKES THE SAME QUESTIONS/REPEATS THE SAME STATEMENTS OVER AND OVER AGAIN. PT REMAINS PLEASANT. EEG AND CT OF ABDOMEN COMPLETED. PT EATING AND DRINKING WITHOUT GIVEN. TYLEONL GIVEN FOR NECK PAIN - PT REPORTS FULL RELIEF. PT UP WITH ASSIST X1 TO THE BATHROOM TO VOID AND HAVE BM THIS AFTERNOON. PT ALSO USING URINAL TO VOID NEEDED. NO S/S OF SEIZURE ACTIVITY THIS SHIFT. NEURO CHECKS COMPLETED Q4HRS. VISITED THIS AFTERNOON. PT TURNED Q2HRS FOR COMFORT. PT ALSO REPOSITIONING SELF IN THE BED. PT CURRENTLY SITTING UP IN BED. SEIZURE PRECAUTIONS REMAIN IN PLACE. FALL PRECAUTIONS IN PLACE. HOURLY ROUNDING PERFORMED. ALL NEEDS MET AT THIS TIME.
[2018-01-26 19:47] VITALS: BP 123/62
[2018-01-27 00:37] VITALS: BP 125/64
--- NOTE | 2018-01-27 04:56 | NUR ---
PT AAOX4 BUT IS FORGETFUL AT TIMES. RESP REG AND UNLABORED SKIN W/D NO ACUTE DISTRESS NOTED. TELEMETRY PACK INTACT WITH ALARMS SET. NO SZ ACTIVITY NOTED. SIDE RAILS PADDED AND SEIZURE PRECAUTIONS REMIND IN AFFECT. WILL CONTINUE TO MONITOR.
[2018-01-27 05:07] VITALS: BP 145/76
[2018-01-27 08:00] VITALS: BP 147/81
--- NOTE | 2018-01-27 10:22 | NUR ---
Pt is out of the room, will attempt to assess later
[2018-01-27 11:18] VITALS: BP 130/77
[2018-01-27 15:24] VITALS: BP 135/81
--- NOTE | 2018-01-27 16:10 | NUR ---
I have reviewed the documentation by BRADLEY LIND from TODAY to 01/27/18 and I concur with it. LU BLAND
--- NOTE | 2018-01-27 17:06 | NUR ---
WOUND NURSE: MERCEDEZR REPORTS NO WOUND AND STAFF NURSE CARING FOR PATIENT CONFIRMS THIS. 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 HE REPORST HAS HAS TOPICAL MEDICATION FOR THIS BUT DOESN'T RECALL IT'S NAME. NO INTERVENTION BY THIS NURSE SUGGESTED.
--- NOTE | 2018-01-27 18:31 | NUR ---
I ASSUMED CARE OF THE PATIENT AT 0700. HE IS ALERT AND ORIENTED X2-3 AND IS FORGETFUL. HE REPEATS HIMSELF AND WILL NEW [place] AROUND AND HAVE THE SAME CONVERSATION OVER AND OVER. HE IS ON ROOM AIR AND A REGULAR DIET. SPEECH SAW HIM TODAY AND DID A COGNITIVE EVALUATION. HOURLY ROUNDING WAS COMPLETE AND PATIENT NEEDS WERE MET. PAIN IS DENIED. BED IS IN THE LOW LOCKED POSITION AND CALL LIGHT IS IN REACH. PATIENT WAS MOVED FROM 207 TO 200 WHEN A WATER LEAK WAS DISCOVERED. HE SEEMS TO BE AT BASELINE. WILL CONTINUE TO MONITOR.
[2018-01-27 19:45] VITALS: BP 154/80
[2018-01-28] VITALS (7 sets, daily range): BP systolic 142–187; BP diastolic 73–82
--- NOTE | 2018-01-28 05:01 | NUR ---
PT HAS BEEN AWAKE MOST OF SHIFT. FREQUENT TRIPS TO BATHROOM AND C/O OF SEEING CREATURES IN HIS ROOM. PT HAS BECOME MORE CONFUSED NIGHT HAS PROGRESSED. PT REORIENTED SEVERAL TIMES. PT DOES HOWEVER HAVE PERIODS OF BEING LUCID. RESP REG AND UNLABORED. SKIN W/D NO ACUTE DISTRESS NOTED. NO SX ACTIVITY AND SZ PRECAUTIONS REMAIN IN AFFECT. VSS AND NO ACUTE CHANGES DURING SHIFT. WILL CONTINUE TO MONITOR
[2018-01-28] MEDS ORDERED: KEPPRA XR500 MG PO (09:27)
--- NOTE | 2018-01-28 10:15 | NUR ---
Pt resides at home with . Pt discharging to home today, resumption orders faxed to [facility]. to transport
--- NOTE | 2018-01-28 12:30 | NUR ---
ASSUMED CARE OF PT THIS AM ASSESSED AN DOCUMENTED. SEE CHART. PT D/C'D TO HOME. ALL CONSULTS OK WITH D/C. D/C'D IV AND CARDIAC MONITER. EDUCATION GIVEN RE FOLLOW-UPS, DR ORDERS, AND MEDICATIONS. SCRIPT GIVEN. ALL BELONGINGS PACKED UP ND LEFT WITH PT ACCOMPANIED BY AND STAFF.
--- NOTE | 2018-02-03 09:40 | EEG ---
[address] [address] EEG STUDY REPORT Name: SHERIN COFFEY Desmond Room: [address]#: [id number] Admission: 01/25/18 Attend Phys: Raffy Davis, Discharge: 01/28/18 Date of : 42 Report #: [id number] THIS REPORT FOR: //name// CC: Gisell Davis DATE OF SERVICE: 01/26/2018 DATE OF EE01/26/2018. This patient is being evaluated for altered mental status. EEG was done by placing the electrodes by standard 10-20 system of electrode placement. Both referential and sequential montages were used for recording. Significant amount of artifact is present, making the interpretation of this EEG very difficult. Background activity appeared to be about 8 Hz and 30 microvolt. The patient goes to sleep that is associated with bilaterally symmetrical sleep spindle and vertex sharp waves. Photic stimulation is unremarkable. No clearly well-defined epileptiform activity was noticed. IMPRESSION: This is an abnormal EEG because it is disorganized and poorly formed. That is a nonspecific abnormality which can occur with encephalopathy, effect of psychotropic medication, dementia, etc. Clinical correlation is recommended. <ELECTRONICALLY SIGNED> By: Logan Irwin MD 02/03/18 0940 0908 [id number] Irwin MD /nt
--- NOTE | 2018-02-03 09:40 | CON ---
[address] [address] CONSULTATION Name: SHERIN COFFEY Room: [address] IN ..#: [id number] Admission: 01/25/18 Attend Phys: Raffy Davis, Discharge: 01/28/18 Date of : 42 Report #: [id number] THIS REPORT FOR: //name// CC: Gisell Davis DATE OF SERVICE: 01/26/2018 HISTORY OF PRESENT ILLNESS: This is a 77-year-old male patient who was evaluated by me because he had some altered mental status yesterday. As I understand from the history and the records, this patient does have memory problems in the baseline but it looks like it became worse. He was mainly spacing out. He does not believe he had any headache at that time. These symptoms started spontaneously and there were no aggravating or relieving factors. His symptoms are severe, but part of them are baseline. REVIEW OF SYSTEMS: Positive for being spacing out. A 14-point review of system was carried out and the relevant one is positive for mitral valve repair. He has a history of atrial flutter, depression, tumor removed from kidney, prostate cancer, jess, inguinal hernia, tonsillectomy, hypertension, anxiety and some surgeries on the hands, which was done a few years ago according to the patient. Rest of the 14-point review of system appear noncontributory. He does have significant memory problem PAST MEDICAL HISTORY: Positive for diminished memory. FAMILY HISTORY: Negative for early age strokes. SOCIAL HISTORY: He does not smoke or drink alcohol. PHYSICAL EXAMINATION: Indicate when asked what month it is, he said it is 01/25/2018. He knows what hospital he is in, but his memory and fund of knowledge is poor. His speech looks intact. Cranial nerve examination 2-12 is unremarkable. Neuromuscular examination for strength, sensation, reflexes and tone is unremarkable except for his prior injuries. [id number] is unremarkable. I could not look at the fundus very well. He is a reasonably well-developed individual who does not have any dysmorphic features of eyes, ears and face. His pulses are difficult to feel, but I think are palpable. He has no edema, cyanosis or jaundice. He has no thyroid mass, carotid bruit, meningeal sign. Cardiac examination appear to be showing some murmur. There is no respiratory difficulty or rhonchi. Vital signs indicate blood pressure 130/64, respirations 18, pulse 65, temperature is 98.2. LABORATORY DATA: White count is 10.3. Sodium is normal, but potassium is low. He did have a CT of the head and CTA in the Emergency Room and that [place] [address] CONSULTATION Name: SHERIN COFFEY Desmond Room: [address] IN ..#: [id number] Admission: 01/25/18 Attend Phys: Raffy Davis, Discharge: 01/28/18 Date of : 44 Report #: [id number] IMPRESSION: 1. Dementia. 2. Altered mental status. 3. I need to talk to the family to see how much different he is, but he will be desirable to exclude the possibility of seizures or stroke by doing an MRI and an EEG if it can be done. RECOMMENDATION: 1. I will try to continue to get hold of the patient's to get more history 2. If there is no contraindication, then we would like to do an MRI of the brain. 3. We will try to do an EEG in this patient. 4. Further workup will depend upon the outcome of those testing to see if anything different can be done. 5. It might be desirable for him to avoid medications like Wellbutrin, etc. Thank you very much for this referral and if you have any question, please feel free to contact me. <ELECTRONICALLY SIGNED> By: Logan Irwin MD 02/03/18 0940 0747 [id number] Irwin MD /damián
--- NOTE | 2018-02-11 16:59 | CON ---
[address] [address] CONSULTATION Name: SHERIN COFFEY Room: [address] IN [facility].#: [id number] Admission: 01/25/18 Attend Phys: Raffy Davis, Discharge: 01/28/18 Date of : 44 Report #: [id number] THIS REPORT FOR: //name// CC: Gisell Davis DICTATED BY: uY Ceballos [facility] DATE OF SERVICE: 01/25/2018 Please note at the time of this dictation, the patient was seen and physically examined by myself. REASON FOR CONSULTATION: Abdominal pain. HISTORY OF PRESENT ILLNESS: This is a 77-year-old male who presented to the Emergency Room after having altered mental status with an abrupt onset about an hour and a half prior to admission. His spouse states that they were at the grocery store and she would ask him questions and he seemed to be very spaced out and she had asked other questions and he would not respond. States that he does have some memory problems. The patient does mention that he has had a history of some abdominal discomfort, which he was recently hospitalized for back on 01/17/2018 that showed that he had some pancreatitis, which he has had a history of this noting clear back in 2015, he had the pancreatitis and underwent an EUS with Dr. Unger that showed microlithiasis. He recently was here for pancreatitis and his symptoms had improved. Lipase at that time was 5297. He states his abdominal pain is still somewhat present, but has significantly improved. He denies any nausea or vomiting or worsening of his pain with eating. His main concern was his memory and spacing out that is why he came to the Emergency Room. Last EGD with us was in 04/2016 that showed a 7-cm hiatal hernia. He was to take a PPI on a daily basis. Last colon was in 2013 that showed left-sided diverticular disease, otherwise negative. ALLERGIES: No known drug allergies. MEDICATIONS: From home include Wellbutrin, Colace, simvastatin, Nexium, Zoloft, vitamin C, Os-Micky, aspirin, Namenda, vitamin B12, magnesium, omega 3, Xanax, Ocuvite, sotalol, B12, zinc, Aricept, Lexapro, and Flomax. PAST MEDICAL HISTORY: Anxiety, hypertension, hypercholesterolemia, prostate cancer, renal cancer, hypertension, history of pancreatitis, atrial fibrillation/flutter. PAST SURGICAL HISTORY: Left nephrectomy, mitral valve repair, cholecystectomy, lithotripsy, [place] [address] CONSULTATION Name: SHERIN COFFEY Desmond Room: [address]#: [id number] Admission: 01/25/18 Attend Phys: Raffy Davis, Discharge: 01/28/18 Date of : 42 Report #: [id number] FAMILY HISTORY: Noncontributory. SOCIAL HISTORY: Lives with his . Denies any alcohol, tobacco or illegal drug use. REVIEW OF SYSTEMS: Twelve-point review of systems is essentially negative except what is mentioned in the HPI. PHYSICAL EXAMINATION: VITAL SIGNS: Temperature 36.9, pulse 63, respirations 15, blood pressure 145/76. HEART: Regular rate and rhythm. LUNGS: Clear. ABDOMEN: Soft, positive bowel sounds in all 4 quadrants with very minimal upper epigastric tenderness noted to palpation. LABORATORY DATA: Hemoglobin 12.9, hematocrit 39.9, white count is 10.1, platelets 330. Sodium 142, potassium 4, chloride 103, CO2 31, BUN is 9, creatinine is 0.8, GFR is 94 and glucose is 115. CT of the abdomen and pelvis shows an absent gallbladder. He has got some fatty infiltration of the body and head of the pancreas with mild fat stranding, which has significantly improved from 01/17/2018 and some sigmoid diverticulosis. IMPRESSION: 1. Abdominal pain, improving. 2. Recurrent bout of pancreatitis, improving. 3. Mental status changes. 4. History of dementia. PLAN: 1. The patient is able to eat and drink a regular diet without any incidents. 2. No plans for any endoscopy studies at this time. 3. Office visit in 4 weeks. Thank you for allowing us to participate in this patient's care. Please do not hesitate to call with any questions in regard to this consult. ADDENDUM I have personally seen and examined the patient who apparently was recently diagnosed with pancreatitis. He was once again admitted to hospital with abdominal pain. CT suggestive of resolving pancreatitis[place] [address] CONSULTATION Name: SHERIN COFFEY Desmond Room: [address]#: [id number] Admission: 01/25/18 Attend Phys: Raffy Davis, Discharge: 01/28/18 Date of : 42 Report #: [id number] improving as he is able to tolerate diet without any significant pain. We will continue to monitor and follow up on p.r.n. basis. <ELECTRONICALLY SIGNED> By: rFanklyn Moura MD 02/11/18 1659 1130 [id number] Moura MD /nt
== END 2018-01-28 12:30 | disposition home health service (06) | DRG 438 ==
LOC: M.ERS 16:42 → M.TBA-ER 18:31 → M.2W 18:31
PROVIDERS: Family Medicine; ADMIT Family Medicine
DX: K85.90 Acute pancreatitis without necrosis or infection, unspecified (principal); G92 Toxic encephalopathy; R65.10 Systemic inflammatory response syndrome (SIRS) of non-infectious origin without acute organ dysfunction; I48.92 Unspecified atrial flutter; J98.11 Atelectasis; E44.0 Moderate protein-calorie malnutrition; E87.6 Hypokalemia; R33.9 Retention of urine, unspecified; F03.90 Unspecified dementia, unspecified severity, without behavioral disturbance, psychotic disturbance, mood disturbance, and anxiety; F41.9 Anxiety disorder, unspecified; F32.9 Major depressive disorder, single episode, unspecified; I10 Essential (primary) hypertension; Z85.46 Personal history of malignant neoplasm of prostate; Z90.49 Acquired absence of other specified parts of digestive tract; Z79.82 Long term (current) use of aspirin; Z79.899 Other long term (current) drug therapy; Z90.5 Acquired absence of kidney; Z68.36 Body mass index [BMI] 36.0-36.9, adult

== ENCOUNTER 2018-02-14 15:55 | Emergency (ER) | payer MEDICARE, BC ==
[~2018-02-14] VITALS: Ht 172.7 cm; Wt 79.4 kg
[~2018-02-14 15:55] MED LIST changes: +KEPPRA XR500 MG PO
[2018-02-14 16:33] LABS: ABSOLUTE BASOPHILS 0.1 thou/uL (0.0-0.2); ABSOLUTE EOSINOPHILS 0.3 thou/uL (0.0-0.7); ABSOLUTE LYMPHOCYTES 1.5 thou/uL (0.8-5.3); ABSOLUTE MONOCYTES 0.7 thou/uL (0.0-1.2); ABSOLUTE NEUTROPHILS 4.5 thou/uL (1.6-8.1); BASOPHILS 1.2 %; EOSINOPHILS 4.3 %; HEMATOCRIT 42.1 % (42.0-52.0); HEMOGLOBIN 13.8 gm/dL (14.0-18.0); LYMPHOCYTES 21.5 %; MCHC 32.7 g/dL (28.0-37.0); MCV 88.8 fL (80.0-100.0); MONOCYTES 9.6 %; MPV 8.4 fl. (7.2-11.1); NUCLEATED RBCS 0 /100WBC; PLATELET COUNT* 188 thou/uL (150-400); POLYS 63.4 %; RBC 4.74 mil/uL (4.50-6.00); RDW-CV 17.8 % (10.5-14.5); WBC 7.1 thou/uL (4.0-11.0)
[2018-02-14 16:41] LABS: CALCIUM 8.3 mg/dL (8.5-10.1); CREATININE 0.9 mg/dL (0.6-1.3); INR 1.1; POTASSIUM 4.1 mmol/L (3.5-5.1); PROTIME 10.5 Seconds (9.20-11.50)
[2018-02-14 16:46] LABS: ALBUMIN 3.4 g/dL (3.4-5.0); TOTAL BILIRUBIN 0.6 mg/dL (<0.1-1.0); TOTAL PROTEIN 6.9 g/dL (6.4-8.2)
[2018-02-14 17:02] LABS: URINE BILIRUBIN NEGATIVE (Negative); URINE BLOOD 3+ (Negative); URINE CLARITY CLEAR; URINE COLOR YELLOW; URINE GLUCOSE-RANDOM NEGATIVE (Negative); URINE KETONES NEGATIVE (Negative); URINE LEUKOCYTES 1+ (Negative); URINE NITRITE NEGATIVE (Negative); URINE PROTEIN 2+ (Negative); URINE SPECIFIC GRAVITY >= 1.030 (1.005-1.030); URINE UROBILINOGEN 0.2 E.U./dl (0.2-1.0)
[2018-02-14 17:09] LABS: MUCUS 0-3 Light strn/LPF (None Seen)
[2018-02-14 17:10] LABS: CASTS None Seen /LPF (None Seen); URINE WBC >25 Many /HPF (0-5)
[2018-02-14 17:11] LABS: BACTERIA 1-9 Few /HPF (None Seen)
[2018-02-14 17:12] LABS: CRYSTALS None Seen /LPF (None Seen); SQUAMOUS NONE SEEN /LPF (0-3)
[2018-02-14] MEDS ORDERED: KEFLEX500 M1 PO (17:40)
[2018-02-14 17:56] VITALS: BP 115/73
== END 2018-02-14 18:01 | disposition home or self-care (01) ==
LOC: M.ERS 15:55
PROVIDERS: Physician Assistant
DX: N39.0 Urinary tract infection, site not specified (principal); F41.9 Anxiety disorder, unspecified; F32.9 Major depressive disorder, single episode, unspecified; I10 Essential (primary) hypertension; Z90.49 Acquired absence of other specified parts of digestive tract; Z85.46 Personal history of malignant neoplasm of prostate

== ENCOUNTER 2018-07-01 01:01 | Inpatient (IN) | payer MEDICARE, BC ==
[~2018-07-01] VITALS: Ht 172.7 cm; Wt 87.1 kg
[~2018-07-01 01:01] MED LIST changes: +KEFLEX500 M1 PO
[2018-07-01 01:04] VITALS: BP 175/89
[2018-07-01] MEDS ORDERED: NAMENDA 10 MG T10 MG PO (01:13)
[2018-07-01] MEDS ORDERED: NAMENDA 5 MG TAB5 M1 PO (01:14)
[2018-07-01 01:56] LABS: ABSOLUTE BASOPHILS 0.1 thou/uL (0.0-0.2); ABSOLUTE EOSINOPHILS 0.2 thou/uL (0.0-0.7); ABSOLUTE LYMPHOCYTES 1.3 thou/uL (0.8-5.3); ABSOLUTE MONOCYTES 0.9 thou/uL (0.0-1.2); ABSOLUTE NEUTROPHILS 8.6 thou/uL (1.6-8.1); BASOPHILS 0.7 %; HEMATOCRIT 45.7 % (42.0-52.0); HEMOGLOBIN 14.7 gm/dL (14.0-18.0); LYMPHOCYTES 11.6 %; MCH 28.8 pg (26.0-34.0); MCHC 32.2 g/dL (28.0-37.0); MCV 89.6 fL (80.0-100.0); MONOCYTES 8.1 %; MPV 8.8 fl. (7.2-11.1); NUCLEATED RBCS 0 /100WBC; PLATELET COUNT* 253 thou/uL (150-400); POLYS 77.6 %; RDW-CV 16.6 % (10.5-14.5); WBC 11.1 thou/uL (4.0-11.0)
[2018-07-01 01:57] LABS: URINE BILIRUBIN NEGATIVE (Negative); URINE BLOOD NEGATIVE (Negative); URINE COLOR YELLOW; URINE GLUCOSE-RANDOM NEGATIVE (Negative); URINE KETONES NEGATIVE (Negative); URINE LEUKOCYTES-REFLEX NEGATIVE (Negative); URINE NITRITE-REFLEX NEGATIVE (Negative); URINE PROTEIN NEGATIVE (Negative); URINE SPECIFIC GRAVITY 1.015 (1.005-1.030); URINE UROBILINOGEN 0.2 E.U./dl (0.2-1.0)
[2018-07-01 01:58] LABS: CALCIUM 9.4 mg/dL (8.5-10.1); POTASSIUM 4.1 mmol/L (3.5-5.1)
[2018-07-01 02:03] LABS: TOTAL BILIRUBIN 0.8 mg/dL (<0.1-1.0); TOTAL PROTEIN 8.4 g/dL (6.4-8.2)
[2018-07-01 02:08] LABS: URINE CLARITY SL HAZY
[2018-07-01 03:07] LABS: CASTS None Seen /LPF (None Seen); SQUAMOUS 0-3 Few /LPF (0-3)
[2018-07-01 03:08] LABS: BACTERIA-REFLEX None Seen /HPF (None Seen); URINE RBC None Seen /HPF (0-2); URINE WBC-REFLEX None Seen /HPF (0-5)
[2018-07-01 03:09] LABS: AMORPHOUS PHOSPHATES Many /LPF (None Seen)
[2018-07-01 03:12] VITALS: BP 149/84
[2018-07-01 03:15] VITALS: BP 155/88
[2018-07-01 07:57] VITALS: BP 153/92
[2018-07-01 16:50] VITALS: BP 176/97
[2018-07-01 19:50] VITALS: BP 145/80
[2018-07-02 04:47] LABS: HEMATOCRIT 41.4 % (42.0-52.0); HEMOGLOBIN 13.7 gm/dL (14.0-18.0); MCH 29.4 pg (26.0-34.0); MCHC 33.1 g/dL (28.0-37.0); MCV 88.8 fL (80.0-100.0); MPV 8.6 fl. (7.2-11.1); NUCLEATED RBCS 0 /100WBC; PLATELET COUNT* 228 thou/uL (150-400); RBC 4.67 mil/uL (4.50-6.00); RDW-CV 16.7 % (10.5-14.5); WBC 13.4 thou/uL (4.0-11.0)
[2018-07-02 05:09] LABS: CALCIUM 8.3 mg/dL (8.5-10.1); CREATININE 0.8 mg/dL (0.6-1.3); TOTAL BILIRUBIN 1.3 mg/dL (<0.1-1.0); TOTAL PROTEIN 6.9 g/dL (6.4-8.2)
[2018-07-02 05:51] LABS: ABSOLUTE MONOCYTES 0.7 thou/uL (0.0-1.2); ABSOLUTE NEUTROPHILS 10.7 thou/uL (1.6-8.1); PLATELET ESTIMATE ADEQUATE
[2018-07-02 05:52] LABS: ANISOCYTOSIS 1+; POIKILOCYTOSIS 1+
[2018-07-02 07:50] VITALS: BP 154/86
[2018-07-02 16:00] VITALS: BP 128/76
[2018-07-02 19:45] VITALS: BP 160/88
[2018-07-03 08:10] VITALS: BP 151/85
[2018-07-03 11:37] LABS: ABSOLUTE EOSINOPHILS 0.3 thou/uL (0.0-0.7); ABSOLUTE LYMPHOCYTES 1.1 thou/uL (0.8-5.3); ABSOLUTE MONOCYTES 0.8 thou/uL (0.0-1.2); ABSOLUTE NEUTROPHILS 5.4 thou/uL (1.6-8.1); BASOPHILS 0.6 %; EOSINOPHILS 3.5 %; HEMATOCRIT 36.9 % (42.0-52.0); HEMOGLOBIN 11.9 gm/dL (14.0-18.0); LYMPHOCYTES 14.7 %; MCH 28.9 pg (26.0-34.0); MCHC 32.4 g/dL (28.0-37.0); MCV 89.2 fL (80.0-100.0); MONOCYTES 10.3 %; MPV 8.2 fl. (7.2-11.1); NUCLEATED RBCS 0 /100WBC; PLATELET COUNT* 208 thou/uL (150-400); POLYS 70.9 %; RBC 4.14 mil/uL (4.50-6.00); RDW-CV 16.6 % (10.5-14.5); WBC 7.5 thou/uL (4.0-11.0)
[2018-07-03 11:46] LABS: ALBUMIN 2.6 g/dL (3.4-5.0); CREATININE 0.8 mg/dL (0.6-1.3); POTASSIUM 3.6 mmol/L (3.5-5.1); TOTAL BILIRUBIN 0.9 mg/dL (<0.1-1.0); TOTAL PROTEIN 6.3 g/dL (6.4-8.2)
[2018-07-03 20:00] VITALS: BP 125/66
[2018-07-04 03:56] LABS: ABSOLUTE BASOPHILS 0.1 thou/uL (0.0-0.2); ABSOLUTE EOSINOPHILS 0.3 thou/uL (0.0-0.7); ABSOLUTE LYMPHOCYTES 1.4 thou/uL (0.8-5.3); ABSOLUTE MONOCYTES 0.8 thou/uL (0.0-1.2); ABSOLUTE NEUTROPHILS 4.3 thou/uL (1.6-8.1); BASOPHILS 0.8 %; HEMATOCRIT 36.5 % (42.0-52.0); HEMOGLOBIN 11.7 gm/dL (14.0-18.0); LYMPHOCYTES 20.6 %; MCH 28.7 pg (26.0-34.0); MCHC 32.2 g/dL (28.0-37.0); MCV 89.2 fL (80.0-100.0); MONOCYTES 11.7 %; MPV 8.4 fl. (7.2-11.1); NUCLEATED RBCS 0 /100WBC; PLATELET COUNT* 227 thou/uL (150-400); POLYS 61.9 %; RBC 4.09 mil/uL (4.50-6.00); RDW-CV 16.9 % (10.5-14.5); WBC 6.9 thou/uL (4.0-11.0)
[2018-07-04 04:09] LABS: PREALBUMIN 11.4 mg/dL (18.0-35.7)
[2018-07-04 04:11] LABS: ALBUMIN 2.6 g/dL (3.4-5.0); CALCIUM 8.3 mg/dL (8.5-10.1); CREATININE 0.9 mg/dL (0.6-1.3); POTASSIUM 4.2 mmol/L (3.5-5.1); TOTAL BILIRUBIN 0.4 mg/dL (<0.1-1.0); TOTAL PROTEIN 6.3 g/dL (6.4-8.2)
[2018-07-04 08:00] VITALS: BP 121/68
[2018-07-04 10:24] VITALS: BP 121/68
[2018-07-04] MEDS ORDERED: NORCO 5-325 TA1 EACH PO (10:28)
[2018-07-04 16:30] VITALS: BP 121/68
== END 2018-07-04 12:00 | disposition home or self-care (01) | DRG 438 ==
LOC: M.ERS 01:01 → M.2W 02:27 → M.TBA-ER 02:27 → M.ORTHSURG 02:27 → M.2W 03:27 → M.ORTHSURG 07:31
PROVIDERS: Emergency Medicine; Internal Medicine; ADMIT Internal Medicine
DX: K85.30 Drug induced acute pancreatitis without necrosis or infection (principal); K65.9 Peritonitis, unspecified; R65.10 Systemic inflammatory response syndrome (SIRS) of non-infectious origin without acute organ dysfunction; F41.9 Anxiety disorder, unspecified; F32.9 Major depressive disorder, single episode, unspecified; I48.91 Unspecified atrial fibrillation; N28.9 Disorder of kidney and ureter, unspecified; N40.0 Benign prostatic hyperplasia without lower urinary tract symptoms; F03.90 Unspecified dementia, unspecified severity, without behavioral disturbance, psychotic disturbance, mood disturbance, and anxiety; I10 Essential (primary) hypertension; Z90.49 Acquired absence of other specified parts of digestive tract; Z85.46 Personal history of malignant neoplasm of prostate; Z82.49 Family history of ischemic heart disease and other diseases of the circulatory system; Z79.82 Long term (current) use of aspirin; Z79.899 Other long term (current) drug therapy; Z85.528 Personal history of other malignant neoplasm of kidney; Z90.5 Acquired absence of kidney

== ENCOUNTER 2018-12-05 07:30 | Observation (INO) | payer MEDICARE, BC ==
[~2018-12-05] VITALS: Ht 172.7 cm; Wt 91.6 kg
--- NOTE | ~2018-12-05 | EEG ---
[address] [address] EEG STUDY REPORT Name: SHERIN COFFEY Desmond Room: [address] IN .R#: [id number] Admission: 12/05/18 Attend Phys: Jairo Sánchez MD Discharge: Date of : 42 Report #: [id number] THIS REPORT FOR: //name// CC: Gisell Sánchez DATE OF SERVICE: 12/05/2018 This patient is being evaluated for seizure. EEG was done by placing the electrode by standard 10-20 system of electrode placement. Both referential and sequential montages were used for recording. Background activity in this patient's EEG is about 8-9 Hz and 30 microvolt. The patient became drowsy that is associated with bilateral slowing. The patient's EEG was done twice. Initial EEG demonstrated a finding consistent with a seizure. The EEG was repeated, and then, there was no seizure activity noticed. Because of that, the possibility that this may be all artifact need to be considered. IMPRESSION: The patient's EEG demonstrates findings suggestive of seizure versus artifact. It could not be determined with certainty whether this is because of artifact or it is a real seizure activity. Thank you very much for this referral. By: 1559 [id number] Irwin MD /nt
--- NOTE | ~2018-12-05 | CON ---
[address] [address] CONSULTATION Name: SHERIN COFFEY Room: [address] IN .R.#: [id number] Admission: 12/05/18 Attend Phys: Jairo Sánchez MD Discharge: Date of : 42 Report #: [id number] THIS REPORT FOR: //name// CC: Gisell Sánchez DATE OF SERVICE: 12/05/2018 HISTORY OF PRESENT ILLNESS: This is a 78-year-old male patient who was evaluated by me for seizure. I had seen this patient here and I had seen this patient in the office. I reviewed those records. This patient was diagnosed with seizure and we started the patient on Keppra. This patient by himself discontinued Keppra twice. We had discussed with him the potential catastrophic consequences of doing it, but the Keppra was discontinued twice by the patient and he had adamantly refused to take Keppra. It looks like he had another seizure. It was an unprovoked seizure. They did the workup and his workup included MRI of the brain and that did not show any seizure activity. REVIEW OF SYSTEMS: Positive for multiple psychiatric problems. He also has dementia. He is still confused. He has a history of being on multiple psychiatric medications. The does not believe that any of his psychiatric medication has been changed. I reviewed the records and looks like the last time he was on Wellbutrin, but apparently, he is not on that. In fact, he is on citalopram and he is on dementia medication. He has a history of hemorrhoid, pancreatitis, question of TIA, question of dizziness. He has a history of musculoskeletal injury to the elbow, a kidney tumor removed, anxiety, depression, hypertension, heart murmur, heart valve disease, inguinal hernia, depression, pancreatitis, mitral valve replaced. At one time, he had flutter apparently. That is from the record. He denies any new eye, ENT, cardiac, respiratory, , musculoskeletal, constitutional, dermatological, hematological, psychiatric, throat, allergic symptom associated with present symptomatology. He had some abdominal pain associated with present symptomatology. PAST MEDICAL HISTORY: Positive for seizure. FAMILY HISTORY: Negative for congenital epilepsy. SOCIAL HISTORY: The patient is and I talked to his . He has used alcohol in the past, but does not do it now. PHYSICAL EXAMINATION: Indicates he is alert and responsive. He can follow simple commands. He can tell me what month it is, but he did not know what date it is. He is still confused. His short-term memory is poor. His fund of knowledge is diminished. His cranial nerve examination 2-12 looks unremarkable. His strength, sensation, reflexes and tone is symmetrical. There is no cerebellar sign. I could not look at the patient's fundus. His pulses are [facility] [address] [place] [address] CONSULTATION Name: SHERIN COFFEY Room: [address] IN [facility]#: [id number] Admission: 12/05/18 Attend Phys: Jairo Sánchez MD Discharge: Date of : 44 Report #: [id number] palpable. His cardiac examination is unremarkable. No respiratory difficulty was noticed. His hearing and vision is adequate. His blood pressure is 130/71, respiration is 17, pulse is 69, temperature is 97.3. LABORATORY DATA: His white count is normal at 8.3 and he did have an MRI of the brain and MRA of the head and neck. They were reviewed. They were unremarkable. There is no evidence for stroke. IMPRESSION AND PLAN: This patient has dementia and seizures. He needs to be on seizure medication. He needs to be on it for the rest of the life. He has stopped taking those medications twice abruptly. I reviewed his records and confirmed that. The record also confirmed that he does not want to be on seizure medication, but he needs to be. I talked to the . She understands it. I talked to him and I will talk to him again tomorrow. Hopefully, he will be less confused tomorrow. All of it was discussed with the patient and the family in detail and they understand that. By: 1320 Pmanisha Irwin MD /damián
[~2018-12-05 07:30] MED LIST changes: +NAMENDA 10 MG T10 MG PO; +NAMENDA 5 MG TAB5 M1 PO
[2018-12-05 07:32] VITALS: BP 150/90
[2018-12-05 07:44] LABS: ABSOLUTE BASOPHILS 0.1 thou/uL (0.0-0.2); ABSOLUTE EOSINOPHILS 0.1 thou/uL (0.0-0.7); ABSOLUTE LYMPHOCYTES 0.9 thou/uL (0.8-5.3); ABSOLUTE MONOCYTES 0.4 thou/uL (0.0-1.2); ABSOLUTE NEUTROPHILS 6.8 thou/uL (1.6-8.1); BASOPHILS 0.8 %; EOSINOPHILS 1.2 %; HEMOGLOBIN 14.3 gm/dL (14.0-18.0); LYMPHOCYTES 11.4 %; MCH 28.4 pg (26.0-34.0); MCHC 32.5 g/dL (28.0-37.0); MCV 87.4 fL (80.0-100.0); MONOCYTES 4.7 %; MPV 8.4 fl. (7.2-11.1); NUCLEATED RBCS 0 /100WBC; PLATELET COUNT* 229 thou/uL (150-400); POLYS 81.9 %; RBC 5.04 mil/uL (4.50-6.00); RDW-CV 15.8 % (10.5-14.5); WBC 8.3 thou/uL (4.0-11.0)
[2018-12-05 07:50] LABS: CALCIUM 8.6 mg/dL (8.5-10.1); CREATININE 0.9 mg/dL (0.6-1.3); POTASSIUM 4.9 mmol/L (3.5-5.1)
[2018-12-05 07:55] LABS: ALBUMIN 3.7 g/dL (3.4-5.0); TOTAL BILIRUBIN 0.8 mg/dL (<0.1-1.0); TOTAL PROTEIN 7.8 g/dL (6.4-8.2)
[2018-12-05] MEDS ORDERED: LEXAPRO20 MG PO (07:59)
--- NOTE | 2018-12-05 10:43 | NUR ---
PT PLACED ON REGULAR HOSP BED SINCE HE WILL BE STAYING IN E.D. FOR NOW.
[2018-12-05 11:13] VITALS: BP 130/71
[2018-12-05 12:00] VITALS: BP 122/70
[2018-12-05 16:11] VITALS: BP 100/54
--- NOTE | 2018-12-05 16:36 | EKG ---
[place] [address] ELECTROCARDIOGRAM REPORT Name: SHERIN COFFEY Room: [address] ADM IN .R.#: [id number] Admission: 12/05/18 Attend Phys: Jairo Sánchez MD Discharge: Date of : 42 Report #: [id number] THIS REPORT FOR: //name// [facility] ED Test Date: 2018-12-05 Test Time: 07:39:52 Pat Name: SHERNI COFFEY Department: Room: [facility] Gender: M Svp Marketing: Tavia NUNEZ : 1940 Requested By: Judith Munoz Order Number: [id number] MD: Lorne Riley Measurements Intervals [place] Rate: 64 P: 57 MT: 167 QRS: 85 QRSD: 99 T: 51 QT: 427 QTc: 441 Interpretive Statements Sinus rhythm Probable left atrial enlargement Borderline right axis deviation Borderline T wave abnormalities Compared to ECG 01/25/2018 17:07:03 T-wave abnormality now present Atrial premature complex(es) no longer present Prolonged QT interval no longer present Electronically Signed On 12-05-2018 16:36:16 CDT by Lorne Riley [email or web address] <ELECTRONICALLY SIGNED> By: Lorne Riley MD, FACC 12/05/18 1636 0739 0739 Lorne Riley MD, FAC /EPI
--- NOTE | 2018-12-05 19:29 | NUR ---
PT'S CONCERNED THAT PATIENT MAY HAVE PANCREATITIS AGAIN ESPECIALLY WITH HIM HAVING ABDOMINAL PAIN. Jakks PacificITTER INSTRUCTED HER TO BRING THIS UP WITH THE DR. IN THE MORNING THE ONLY DR ON NOW IS THE STEEL DIVISION SUPERVISOR DR. THIS INFORMATION WAS PASSED ON TO THE ENGINEER INTERNSHIP TO HAND OFF IN THE MORNING.
[2018-12-05 20:00] VITALS: BP 102/53
[2018-12-06] VITALS: BP 129/82
[2018-12-06 04:00] VITALS: BP 107/65
--- NOTE | 2018-12-06 05:34 | NUR ---
ASSUMED CARE OF PT AFTER REPORT AT 1930. PT A&OX4. FORGETFUL. VSS. PHYSICAL ASSESSMENT COMPLETED AND CHARTED. PT ON RA. PT TRACING SR ON TELE. PT UPSTANDBY. PT COMPLAINED OF HEADACHE AND BEING BLOATED- DR LONG INFORMED WITH NEW ORDERS. MAINATAINED ON SEIZURE PRECAUTION. HOURLY ROUNDING OBSERVED. CALL LIGHT WITHIN REACH.
[2018-12-06 05:43] LABS: ABSOLUTE BASOPHILS 0.1 thou/uL (0.0-0.2); ABSOLUTE EOSINOPHILS 0.2 thou/uL (0.0-0.7); ABSOLUTE LYMPHOCYTES 1.9 thou/uL (0.8-5.3); ABSOLUTE MONOCYTES 0.7 thou/uL (0.0-1.2); ABSOLUTE NEUTROPHILS 4.4 thou/uL (1.6-8.1); BASOPHILS 0.9 %; EOSINOPHILS 2.7 %; HEMATOCRIT 40.7 % (42.0-52.0); LYMPHOCYTES 26.3 %; MCH 27.9 pg (26.0-34.0); MCHC 31.9 g/dL (28.0-37.0); MCV 87.4 fL (80.0-100.0); MONOCYTES 10.2 %; MPV 8.6 fl. (7.2-11.1); NUCLEATED RBCS 0 /100WBC; PLATELET COUNT* 222 thou/uL (150-400); POLYS 59.9 %; RBC 4.65 mil/uL (4.50-6.00); RDW-CV 15.8 % (10.5-14.5); WBC 7.4 thou/uL (4.0-11.0)
[2018-12-06 06:00] LABS: ANION GAP 5 mmol/L (7-16); BUN 24 mg/dL (7-18); CALCIUM 8.7 mg/dL (8.5-10.1); CHLORIDE 104 mmol/L (98-107); CHOLESTEROL 114 mg/dL (<200); CO2 30 mmol/L (21-32); CREATININE 1.1 mg/dL (0.6-1.3); GLUCOSE 107 mg/dL (70-99); HDL CHOLESTEROL 41 mg/dL (>40); LDL CHOLESTEROL 59 mg/dL (<100); MAGNESIUM 1.9 mg/dL (1.8-2.4); POTASSIUM 4.2 mmol/L (3.5-5.1); SODIUM 139 mmol/L (136-145); TC:HDL 2.8 Ratio (Not establshd); TRIGLYCERIDE 71 mg/dL (<150); VLDL 14 mg/dL (<40)
[2018-12-06 06:04] LABS: SERUM ASSESSMENT Clear
[2018-12-06 08:00] VITALS: BP 111/72
--- NOTE | 2018-12-06 10:51 | NUR ---
PT ALERT AND ORIENTED, BUT FORGETFUL. TELE TRACKING NSR AND ALL VSS ON ROOM AIR. DENIES CP, SOA. SZ PRECAUTIONS IN PLACE. BED/CHAIR ALARM ON. EDUCATED ON SAFETY AND PLAN OF CARE. PLEASE SEE ASSESSMENT FOR ADDITIONAL INFORMATION. WILL CONT TO MONITOR
[2018-12-06 12:00] VITALS: BP 108/57
[2018-12-06] MEDS ORDERED: KEPPRA 500 MG500 M1 PO (13:09)
[2018-12-06 13:58] VITALS: BP 108/57
[2018-12-07 02:09] LABS: GLYCOHEMOGLOBIN (HGB A1C) 5.8 % (4.8-5.6)
== END 2018-12-06 14:18 | disposition home or self-care (01) ==
LOC: M.ERS 07:30 → M.2W 09:01 → M.TBA-ER 09:01 → M.2W 11:22
PROVIDERS: Personal Emergency Response Attendant; ADMIT Family Medicine
DX: G40.909 Epilepsy, unspecified, not intractable, without status epilepticus (principal); I48.0 Paroxysmal atrial fibrillation; K86.1 Other chronic pancreatitis; I10 Essential (primary) hypertension; I48.92 Unspecified atrial flutter; F41.9 Anxiety disorder, unspecified; F32.9 Major depressive disorder, single episode, unspecified; Z95.4 Presence of other heart-valve replacement; Z85.53 Personal history of malignant neoplasm of renal pelvis; Z79.82 Long term (current) use of aspirin; Z79.899 Other long term (current) drug therapy; Z90.89 Acquired absence of other organs; Z90.49 Acquired absence of other specified parts of digestive tract; Z95.810 Presence of automatic (implantable) cardiac defibrillator; Z85.46 Personal history of malignant neoplasm of prostate; Z90.5 Acquired absence of kidney; Z98.890 Other specified postprocedural states

== ENCOUNTER 2018-12-09 08:50 | Emergency (ER) | payer MEDICARE, BC ==
[~2018-12-09] VITALS: Ht 172.7 cm; Wt 108.4 kg
[~2018-12-09 08:50] MED LIST changes: +KEPPRA 500 MG500 M1 PO
[2018-12-09 09:44] LABS: ABSOLUTE BASOPHILS 0.1 thou/uL (0.0-0.2); ABSOLUTE EOSINOPHILS 0.2 thou/uL (0.0-0.7); BASOPHILS 0.8 %; EOSINOPHILS 2.1 %; HEMATOCRIT 40.2 % (42.0-52.0); HEMOGLOBIN 13.3 gm/dL (14.0-18.0); LYMPHOCYTES 12.6 %; MCH 28.7 pg (26.0-34.0); MCHC 33.1 g/dL (28.0-37.0); MCV 86.8 fL (80.0-100.0); MONOCYTES 11.9 %; MPV 8.3 fl. (7.2-11.1); NUCLEATED RBCS 0 /100WBC; PLATELET COUNT* 208 thou/uL (150-400); POLYS 72.6 %; RBC 4.63 mil/uL (4.50-6.00); RDW-CV 15.9 % (10.5-14.5); WBC 8.2 thou/uL (4.0-11.0)
[2018-12-09 09:50] LABS: ANION GAP 9 mmol/L (7-16); BUN 15 mg/dL (7-18); CALCIUM 8.8 mg/dL (8.5-10.1); CHLORIDE 102 mmol/L (98-107); CO2 27 mmol/L (21-32); CREATININE 0.9 mg/dL (0.6-1.3); GLUCOSE 96 mg/dL (70-99); POTASSIUM 4.1 mmol/L (3.5-5.1); SODIUM 138 mmol/L (136-145)
[2018-12-09 10:02] LABS: ALBUMIN 3.6 g/dL (3.4-5.0); ALKALINE PHOSPHATASE 85 U/L (46-116); LIPASE 822 U/L (73-393); SGOT 15 U/L (15-37); SGPT 20 U/L (30-65); TOTAL BILIRUBIN 0.9 mg/dL (<0.1-1.0); TOTAL PROTEIN 7.4 g/dL (6.4-8.2); TROPONIN-I LEVEL <0.06 ng/mL (<0.06)
[2018-12-09] MEDS ORDERED: PHENERGAN 25 MG25 M1 PO (10:56)
[2018-12-09] MEDS ORDERED: NORCO 5-325 TA1 EACH PO (10:56)
[2018-12-09 11:28] VITALS: BP 147/84
--- NOTE | 2018-12-09 15:38 | EKG ---
[place] [address] ELECTROCARDIOGRAM REPORT Name: COFFEYSHERIN Desmond Room: [facility]#: [id number] Admission: 12/09/18 Attend Phys: Discharge: 12/09/18 Date of : 44 Report #: [id number] THIS REPORT FOR: //name// [facility] ED Test Date: 2018-12-09 Test Time: 10:05:31 Pat Name: SHERIN COFFEY Department: Room: Gender: M Wage Adjuster: MS : 1940 Requested By: Judith Munoz Order Number: [id number] MD: Cisco Emmanuel Measurements Intervals [place] Rate: 68 P: 44 WV: 170 QRS: 65 QRSD: 100 T: 39 QT: 415 QTc: 442 Interpretive Statements Sinus rhythm Possible left atrial enlargement Borderline T wave abnormalities Compared to ECG 12/05/2018 07:39:52 No significant changes Electronically Signed On 12-09-2018 15:38:29 CDT by Cisco Emmanuel [email or web address] <ELECTRONICALLY SIGNED> By: Cisco Emmanuel MD, [facility] 12/09/18 1538 Cisco Emmanuel MD, FACC /EPI
== END 2018-12-09 11:28 | disposition home or self-care (01) ==
LOC: M.ERS 08:50
PROVIDERS: Personal Emergency Response Attendant
DX: K85.90 Acute pancreatitis without necrosis or infection, unspecified (principal); F41.9 Anxiety disorder, unspecified; F32.9 Major depressive disorder, single episode, unspecified; I10 Essential (primary) hypertension; Z90.89 Acquired absence of other organs; Z90.49 Acquired absence of other specified parts of digestive tract; Z85.46 Personal history of malignant neoplasm of prostate

== ENCOUNTER 2019-03-09 10:02 | Inpatient (IN) | payer MEDICARE, BC ==
[~2019-03-09] VITALS: Ht 152.4 cm; Wt 89.5 kg
[~2019-03-09 10:02] MED LIST changes: +PHENERGAN 25 MG25 M1 PO
[2019-03-09 10:16] VITALS: BP 139/82
[2019-03-09 10:37] LABS: ABSOLUTE BASOPHILS 0.1 thou/uL (0.0-0.2); ABSOLUTE EOSINOPHILS 0.2 thou/uL (0.0-0.7); ABSOLUTE LYMPHOCYTES 1.3 thou/uL (0.8-5.3); ABSOLUTE MONOCYTES 0.6 thou/uL (0.0-1.2); ABSOLUTE NEUTROPHILS 3.7 thou/uL (1.6-8.1); BASOPHILS 1.2 %; EOSINOPHILS 3.2 %; HEMOGLOBIN 13.6 gm/dL (14.0-18.0); LYMPHOCYTES 22.2 %; MCH 27.6 pg (26.0-34.0); MCHC 32.3 g/dL (28.0-37.0); MCV 85.3 fL (80.0-100.0); MONOCYTES 9.8 %; MPV 8.2 fl. (7.2-11.1); NUCLEATED RBCS 0 /100WBC; PLATELET COUNT* 205 thou/uL (150-400); POLYS 63.6 %; RBC 4.92 mil/uL (4.50-6.00); RDW-CV 17.2 % (10.5-14.5); WBC 5.7 thou/uL (4.0-11.0)
[2019-03-09 10:42] LABS: ANION GAP 5 mmol/L (7-16); BUN 16 mg/dL (7-18); CALCIUM 8.8 mg/dL (8.5-10.1); CHLORIDE 103 mmol/L (98-107); CO2 30 mmol/L (21-32); CREATININE 0.9 mg/dL (0.6-1.3); GLUCOSE 91 mg/dL (70-99); POTASSIUM 4.3 mmol/L (3.5-5.1); SODIUM 138 mmol/L (136-145)
[2019-03-09 10:52] LABS: ALBUMIN 3.7 g/dL (3.4-5.0); ALKALINE PHOSPHATASE 91 U/L (46-116); SGOT 17 U/L (15-37); SGPT 24 U/L (30-65); TOTAL BILIRUBIN 1.1 mg/dL (<0.1-1.0); TOTAL PROTEIN 7.3 g/dL (6.4-8.2); TROPONIN-I LEVEL <0.06 ng/mL (<0.06)
[2019-03-09 10:58] LABS: APTT 26.4 Seconds (25.0-31.3); PROTIME 10.7 Seconds (9.20-11.50)
--- NOTE | 2019-03-09 11:12 | NUR ---
PT AMBULATED TO BATHROOM W/ STEADY GAIT, STANDBY ASSIST ONLY FOR BM.
[2019-03-09] MEDS ORDERED: NAMENDA XR14 MG PO (11:16)
[2019-03-09] MEDS ORDERED: LEXAPRO 10 MG T10 MG PO (11:17)
[2019-03-09] MEDS ORDERED: NAMENDA XR7 MG PO (11:17)
[2019-03-09] MEDS ORDERED: ZOCOR20 MG PO (11:17)
[2019-03-09] MEDS ORDERED: SORINE 80 MG TA80 M1 PO (11:17)
[2019-03-09] MEDS ORDERED: KEPPRA 500 MG500 M1 PO (11:21)
[2019-03-09] MEDS ORDERED: ACUVITE PO (11:22)
[2019-03-09] MEDS ORDERED: MAGOX 400400 MG PO (11:23)
[2019-03-09] MEDS ORDERED: VITAMIN B-12500 MCG PO (11:23)
[2019-03-09] MEDS ORDERED: OMEGA-31000 M1 PO (11:23)
[2019-03-09] MEDS ORDERED: ASPIRIN81 M2 PO (11:24)
[2019-03-09] MEDS ORDERED: SENNA8.6 MG PO (11:24)
[2019-03-09 13:05] VITALS: BP 152/68
[2019-03-09 15:00] VITALS: BP 149/74
[2019-03-09 16:00] VITALS: BP 122/66
--- NOTE | 2019-03-09 18:43 | NUR ---
PT ADMITTED FROM ER. AOX4 FORGETFUL, PLEASANT. ON RA. O2 SATURATION ABOVE 95%. VSS. SEIZURE PRECAUTION IN PLACE. NO SEIZURE ACTIVITIES NOTICED DURING SHIFT. NEURO CONSULTED. PT PASS BEDSIDE SWALLOWING TEST. PT ATE DINER HAS GOOD APPETTIE. R AC LINE IS PATENT. NS AT 20 PER HOUR. SINUS RYTHM ON CLIENT SUPPORT COORDINATOR. NO COMPLAINT. UP WITH STAND BY TO RESTROOM. FALL PRECAUTION IN PLACE. CALL LIGHT AT REACH. WILL CONTINUE TO MONITOR
[2019-03-09 20:00] VITALS: BP 134/67
[2019-03-10 00:46] VITALS: BP 162/73
[2019-03-10 03:50] LABS: GLYCOHEMOGLOBIN (HGB A1C) 5.9 % (4.8-5.6)
--- NOTE | 2019-03-10 04:48 | NUR ---
ASSUMED PT CARE AT 1930. ASSESSMENT COMPLETED CHARTED. ABLE TO MAKE NEEDS KNOWN. NO C/O PAIN OR DISCOMFORT. UP WITH STANDBY ASSIST DUE TO DIZZINESS. PT RESTING IN BED AT THIS TIME. VSS. WILL CONTINUE TO MONITOR.
[2019-03-10 05:36] LABS: CHOLESTEROL 134 mg/dL (<200); HDL CHOLESTEROL 44 mg/dL (>40); LDL CHOLESTEROL 81 mg/dL (<100); TRIGLYCERIDE 47 mg/dL (<150); VLDL 9 mg/dL (<40)
[2019-03-10 05:39] LABS: SERUM ASSESSMENT Clear
[2019-03-10 07:54] VITALS: BP 135/80
--- NOTE | 2019-03-10 10:29 | EKG ---
[place] [address] ELECTROCARDIOGRAM REPORT Name: SHERIN COFFEY Room: [address] ADM IN .R.#: [id number] Admission: 03/09/19 Attend Phys: Valeria Velazquez Discharge: Date of : 44 Report #: [id number] THIS REPORT FOR: //name// [facility] ED Test Date: 2019-03-09 Test Time: 11:33:46 Pat Name: SHERIN COFFEY Department: Room: [facility] Gender: M Assistant Banquet Manager: : 1940 Requested By: Bruno Yanes Order Number: [id number] MD: Cisco Emmanuel Measurements Intervals [place] Rate: 54 P: 61 NH: 168 QRS: 76 QRSD: 99 T: 31 QT: 452 QTc: 429 Interpretive Statements Sinus rhythm Compared to ECG 12/09/2018 10:05:31 T-wave abnormality no longer present Electronically Signed On 03-10-2019 10:29:28 CDT by Cisco Emmanuel [email or web address] <ELECTRONICALLY SIGNED> By: Cisco Emmanuel MD, [facility] 03/10/19 1029 1133 1133 Cisco Emmanuel MD, [facility] /EPI
[2019-03-10] MEDS ORDERED: KEPPRA750 MG PO (11:44)
[2019-03-10 12:00] VITALS: BP 132/62
[2019-03-10 12:06] LABS: IgA 247 mg/dL (61-437); IgG 1168 mg/dL (700-1600); IgM 43 mg/dL (15-143)
--- NOTE | 2019-03-10 12:30 | NUR ---
Pt having ECHO when CM went to assess. Plan dc to home post Echo.
--- NOTE | 2019-03-10 15:37 | NUR ---
ASSUMED CARE OF PT AROUND 0730 THIS AM. REFER TO ASSESSMENT. PT HAD MRI AND EEG COMPLETED THIS SHIFT. REFER TO RESULTS. DISCHARGE ORDERS ON CHART, ALTHOUGH DISCUSSED WITH PHYSICIAN AND PHYSICIAN PREFERS DC TOMORROW D/T SEIZURE MONITORING WITH NEW KEPPRA DOSE. NO SEIZURE ACTIVITY NOTED THIS SHIFT. SEIZURE PRECAUTIONS IN PLACE. VSS. STEADY GAIT. NO OTHER CONCERNS AT THIS TIME. CLWR. WCTM.
--- NOTE | 2019-03-10 15:46 | NUR ---
SW met with pt to complete initial assessment, introduce self, and SW role. Pt was not present. Pt alert, oriented. Pt continues to live at home with ; pt did not express any dc needs at this time. Pt said he "just had a seizure". Pt/pt have declined HH in the past. Pt has hx with [facility] HH services. Pt also has inpt and outpt psychiatric history. Hx of [facility] and hx of memory care unit at [facility]. SW to remain available to assist if dc needs arise.
[2019-03-10 16:46] VITALS: BP 139/88
[2019-03-10 20:00] VITALS: BP 144/66
[2019-03-11] VITALS: BP 149/89
[2019-03-11 04:00] VITALS: BP 140/71
--- NOTE | 2019-03-11 06:56 | NUR ---
ASSUMED PT CARE AT 1930. ASSESSMENT COMPLETED CHARTED. ABLE TO MAKE NEEDS KNOWN. UP WITH SBA, SEIZURE PRECAUTIONS IN PLACE. NO C/O PAIN OR DISCOMFORT. PT RESTING IN BED AT THIS TIME. WILL CONTINUE TO MONITOR.
--- NOTE | 2019-03-11 07:20 | NUR ---
CHANGE OF SHIFT, BEDSIDE REPORT GIVEN PATIENT SEEN AT BEDSIDE, IN BED RESTING ASSUMED PATIENT CARE
[2019-03-11 08:00] VITALS: BP 126/81
[2019-03-11 12:29] VITALS: BP 125/67
[2019-03-11 16:29] VITALS: BP 125/67
--- NOTE | 2019-03-11 18:10 | NUR ---
PATIENT DISCHARGED TO HOME DC INSTRUCTIONS GIVEN AND ACKNOWLEDGED AND SIGNED COPIES GIVEN HEART MONITOR REMOVED PERSONAL BELONGINGS RETURNED ASSISTED OUT VIA WC GOOD CONDITION TO WAITING
--- NOTE | 2019-03-12 08:45 | NUR ---
I have reviewed the documentation by MAYA HOOD from 03/10/19 to 03/12/19 and I concur with it. LU BLAND
--- NOTE | 2019-03-19 10:45 | EEG ---
[address] [address] EEG STUDY REPORT Name: SHERIN COFFEY Room: [address]R#: [id number] Admission: 03/09/19 Attend Phys: Valeria Velazquez Discharge: 03/11/19 Date of : 44 Report #: [id number] THIS REPORT FOR: //name// CC: Gisell Hancock DATE OF SERVICE: 03/10/2019 This patient is being evaluated for the possibility of seizure. EEG was done by placing the electrode by standard 10-20 system of electrode placement. Both referential and sequential montages were used for recording. Background activity in this patient's EEG is about 8-9 Hz and 30 microvolt. He went to sleep and that is associated with bilaterally symmetrical sleep spindle and vertex sharp waves. Photic stimulation is unremarkable. Throughout the record, no active epileptiform activity was noticed. IMPRESSION: This patient's EEG does not demonstrate any active epileptiform activity. <ELECTRONICALLY SIGNED> By: Logan Be MD 03/19/19 1045 [id number] [id number] Be MD /nt
--- NOTE | 2019-03-19 10:45 | CON ---
[address] [address] CONSULTATION Name: ALEXXSHERIN L Room: [address] IN .R.#: [id number] Admission: 03/09/19 Attend Phys: Valeria Velazquez Discharge: 03/11/19 Date of : 44 Report #: [id number] THIS REPORT FOR: //name// CC: Gisell Hancock DATE OF SERVICE: 03/09/2019 HISTORY OF PRESENT ILLNESS: This is a 78-year-old male patient who was seen by me for the possibility of seizure. I have seen this patient in the past and I reviewed those records. I also saw him in the hospital. He has been diagnosed with dementia and seizures. He was put on Keppra and multiple times he stopped taking his medications. He does not like the medication. This time, he was taking the Keppra and he still had the spell. Apparently, the spell was not as severe. I talked to the patient and subsequently to the patient's and both of them confirm that. REVIEW OF SYSTEMS: Indicate that he has chronic vertigo and history of elbow repair, lithotripsy, kidney tumor, anxiety, depression, heart murmur, heart valve repair, prostatic carcinoma, etc. This was his relevant 14-point review of systems. PAST MEDICAL HISTORY: Positive for seizure and dementia. Seizure diagnosis has been presumptive because EEG did not show any definite seizure activity. FAMILY HISTORY: Unremarkable. SOCIAL HISTORY: The patient lives with his and she provided some of the history. He says he does not drink alcohol. PHYSICAL EXAMINATION: Indicate he is alert. He is responsive. He can follow simple commands. His memory is poor and that has been his baseline. Cranial nerve examination 2-12 indicates no definite focality. Neuromuscular examinations appear unremarkable. No change in cardiac or respiratory status. He did have a CT scan of the head, which appear unremarkable. He had workup in the past including multiple MRIs and MRA, which were reviewed. IMPRESSION: It looks like he had breakthrough seizures in spite of being on low dose of Keppra. I discussed the situation with the patient and subsequently with the patient's . We will increase the dosages of Keppra to some extent. I will change it to 750 p.o. b.i.d. I will check an MRI and EEG to make sure there is no interval change. If none is present from a neurological perspective, he can be dismissed tomorrow with seizure precautions, which had been discussed with the patient and the multiple times. All his MRIs were without contrast and this time I will do with and without contrast. I have discussed all of it with the patient in detail [place] [address] CONSULTATION Name: SHERIN COFFEY Des[place] Room: [address] IN M.R.#: [id number] Admission: 03/09/19 Attend Phys: Valeria Velazquez Discharge: 03/11/19 Date of : 44 Report #: [id number] patient's . Time spent about 50 minutes and about half of it counseling and coordinating. Thank you very much for this referral. <ELECTRONICALLY SIGNED> By: Logan Be MD 03/19/19 1045 1739 [id number] Be MD /nt
== END 2019-03-11 17:00 | disposition home or self-care (01) | DRG 101 ==
LOC: M.ERS 10:02 → M.TBA-ER 11:25 → M.2W 11:25
PROVIDERS: Family Medicine; Psychiatry & Neurology Neuromuscular Medicine; ADMIT Internal Medicine
DX: R56.9 Unspecified convulsions (principal); G45.9 Transient cerebral ischemic attack, unspecified; I38 Endocarditis, valve unspecified; R41.3 Other amnesia; F03.90 Unspecified dementia, unspecified severity, without behavioral disturbance, psychotic disturbance, mood disturbance, and anxiety; F32.9 Major depressive disorder, single episode, unspecified; N28.9 Disorder of kidney and ureter, unspecified; F41.9 Anxiety disorder, unspecified; I10 Essential (primary) hypertension; Z90.49 Acquired absence of other specified parts of digestive tract; Z85.46 Personal history of malignant neoplasm of prostate; Z79.82 Long term (current) use of aspirin; Z82.49 Family history of ischemic heart disease and other diseases of the circulatory system; Z80.9 Family history of malignant neoplasm, unspecified; Z82.0 Family history of epilepsy and other diseases of the nervous system

== ENCOUNTER 2019-10-06 18:35 | Emergency (ER) | payer MEDICARE, BC ==
[~2019-10-06] VITALS: Ht 172.7 cm; Wt 83.0 kg
[~2019-10-06 18:35] MED LIST changes: +ACUVITE PO; +ASPIRIN81 M2 PO; +KEPPRA750 MG PO; +LEXAPRO 10 MG T10 MG PO; +MAGOX 400400 MG PO; +NAMENDA XR14 MG PO; +SENNA8.6 MG PO; +VITAMIN B-12500 MCG PO; +ZOCOR20 MG PO
[2019-10-06] MEDS ORDERED: FLOMAX0.4 MG PO (19:06)
[2019-10-06] MEDS ORDERED: SORINE 80 MG TA80 MG PO (19:06)
[2019-10-06] MEDS ORDERED: AUGMENTIN 875-1 EACH PO (20:48)
[2019-10-06 21:18] VITALS: BP 129/73
== END 2019-10-06 21:19 | disposition home or self-care (01) ==
LOC: M.ERS 18:35
DX: S61.412A Laceration without foreign body of left hand, initial encounter (principal); S61.411A Laceration without foreign body of right hand, initial encounter; I10 Essential (primary) hypertension; Z90.49 Acquired absence of other specified parts of digestive tract; Z90.89 Acquired absence of other organs; Z85.46 Personal history of malignant neoplasm of prostate; W54.0XXA Bitten by dog, initial encounter; Y93.89 Activity, other specified; Y92.89 Other specified places as the place of occurrence of the external cause; Y99.8 Other external cause status

== ENCOUNTER 2020-01-16 05:54 | Inpatient (IN) | payer MEDICARE, BC ==
[~2020-01-16] VITALS: Ht 172.7 cm; Wt 81.6 kg
[~2020-01-16 05:54] MED LIST changes: +AUGMENTIN 875-1 EACH PO; +SORINE 80 MG TA80 MG PO
[2020-01-16 06:00] VITALS: BP 184/83
[2020-01-16] MEDS ORDERED: LISINOPRIL20 MG PO (06:21)
[2020-01-16 06:46] LABS: ICTOTEST (BILI CONFIRMATORY) Negative (Negative); URINE BILIRUBIN 1+ (Negative); URINE BLOOD NEGATIVE (Negative); URINE CLARITY CLEAR; URINE COLOR YELLOW; URINE GLUCOSE-RANDOM NEGATIVE (Negative); URINE KETONES NEGATIVE (Negative); URINE LEUKOCYTES-REFLEX NEGATIVE (Negative); URINE NITRITE-REFLEX NEGATIVE (Negative); URINE PROTEIN NEGATIVE (Negative); URINE SPECIFIC GRAVITY 1.015 (1.005-1.030); URINE UROBILINOGEN 0.2 E.U./dl (0.2-1.0)
[2020-01-16 07:04] LABS: ABSOLUTE BASOPHILS 0.1 thou/uL (0.0-0.2); ABSOLUTE EOSINOPHILS 0.2 thou/uL (0.0-0.7); ABSOLUTE LYMPHOCYTES 1.5 thou/uL (0.8-5.3); ABSOLUTE NEUTROPHILS 6.7 thou/uL (1.6-8.1); BASOPHILS 0.6 %; EOSINOPHILS 1.9 %; HEMATOCRIT 38.8 % (42.0-52.0); LYMPHOCYTES 15.4 %; MCHC 33.4 g/dL (28.0-37.0); MCV 86.8 fL (80.0-100.0); MONOCYTES 10.6 %; NUCLEATED RBCS 0 /100WBC; PLATELET COUNT* 200 thou/uL (150-400); POLYS 71.5 %; RBC 4.48 mil/uL (4.50-6.00); RDW-CV 16.3 % (10.5-14.5); WBC 9.4 thou/uL (4.0-11.0)
[2020-01-16 07:16] LABS: CALCIUM 8.3 mg/dL (8.5-10.1); CREATININE 0.9 mg/dL (0.6-1.3); POTASSIUM 3.9 mmol/L (3.5-5.1)
[2020-01-16 07:20] LABS: ALBUMIN 3.3 g/dL (3.4-5.0); TOTAL BILIRUBIN 1.1 mg/dL (<0.1-1.0); TOTAL PROTEIN 6.9 g/dL (6.4-8.2)
--- NOTE | 2020-01-16 12:57 | EKG ---
[place] [address] ELECTROCARDIOGRAM REPORT Name: MAI COFFEYHalle DUMONT Room: [place] [address] ADM IN [facility].#: [id number] Admission: 01/16/20 Attend Phys: Francisco Hancock Discharge: Date of : 44 Date of Service: 01/16/20 0613 Report #: [id number] THIS REPORT FOR: //name// [facility] ED Test Date: 2020-01-16 Test Time: 06:13:13 Pat Name: SHERIN COFFEY Department: Room: [facility] Gender: M Carton Catcher: : 1940 Requested By: Judith Munoz Order Number: [id number] MD: Michael Mar Measurements Intervals [place] Rate: 59 P: 67 SD: 173 QRS: 68 QRSD: 99 T: 10 QT: 415 QTc: 412 Interpretive Statements Sinus rhythm RSR' in V1 or V2, right VCD or RVH Compared to ECG 03/09/2019 11:33:46 RSR' in V1 or V2 now present Electronically Signed On 01-16-2020 12:56:26 CDT by Michael Mar [email or web address] <ELECTRONICALLY SIGNED> By: Michael Mar MD, FAC 01/16/20 1256 2 Michael Mar MD, FAC /EPI
[2020-01-16 13:32] VITALS: BP 163/81
[2020-01-16 16:00] VITALS: BP 158/66
[2020-01-16 16:52] VITALS: BP 163/81
--- NOTE | 2020-01-16 17:02 | NUR ---
PATIENT ARRIVED TO UNIT AT APPROX 1400. ALERT AND ORIENTED X4 BUT FORGETFUL AT TIMES. VSS ON ROOM AIR. ADMISSION HISTORY AND ASSESSMENT COMPLETED AND CHARTED. FLUIDS INFUSING UPON ARRIVAL. PATIENT UP AD FRANCIS TO THE BATHROOM. COMPLAINT OF PAIN MINIMAL UPON ARRIVAL AND NO FURTHER COMPLAINTS OF THIS WRITING. PATIENT ORIENTED TO ROOM AND USE OF CALL LIGHT. CALL LIGHT PLACED IN REACH. HOURLY ROUNDS COMPLETED. WILL CONTINUE WITH PLAN OF CARE.
[2020-01-16 19:57] VITALS: BP 169/90
[2020-01-16 20:00] VITALS: BP 169/90
[2020-01-17 05:18] LABS: ABSOLUTE BASOPHILS 0.1 thou/uL (0.0-0.2); ABSOLUTE EOSINOPHILS 0.1 thou/uL (0.0-0.7); ABSOLUTE MONOCYTES 0.8 thou/uL (0.0-1.2); ABSOLUTE NEUTROPHILS 6.6 thou/uL (1.6-8.1); BASOPHILS 0.8 %; HEMATOCRIT 39.2 % (42.0-52.0); LYMPHOCYTES 11.9 %; MCH 28.7 pg (26.0-34.0); MCHC 33.1 g/dL (28.0-37.0); MCV 86.7 fL (80.0-100.0); MONOCYTES 9.5 %; NUCLEATED RBCS 0 /100WBC; PLATELET COUNT* 201 thou/uL (150-400); POLYS 76.8 %; RBC 4.52 mil/uL (4.50-6.00); RDW-CV 16.7 % (10.5-14.5); WBC 8.6 thou/uL (4.0-11.0)
[2020-01-17 05:39] LABS: ALKALINE PHOSPHATASE 79 U/L (46-116); ANION GAP 9 mmol/L (7-16); BUN 13 mg/dL (7-18); CHLORIDE 102 mmol/L (98-107); CHOLESTEROL 107 mg/dL (<200); CO2 26 mmol/L (21-32); CREATININE 0.8 mg/dL (0.6-1.3); GLUCOSE 69 mg/dL (70-99); HDL CHOLESTEROL 49 mg/dL (>40); LDL CHOLESTEROL 51 mg/dL (<100); LIPASE 97 U/L (73-393); POTASSIUM 3.8 mmol/L (3.5-5.1); SGOT 29 U/L (15-37); SGPT 42 U/L (30-65); SODIUM 137 mmol/L (136-145); TC:HDL 2.2 Ratio (Not establshd); TOTAL PROTEIN 6.7 g/dL (6.4-8.2); TRIGLYCERIDE 37 mg/dL (<150); VLDL 7 mg/dL (<40)
[2020-01-17 05:45] LABS: SERUM ASSESSMENT Clear
--- NOTE | 2020-01-17 05:50 | NUR ---
PT A&O, VSS ON RA. DENIED N/V. ABD PAIN MANAGED WITH O4H FENTANYL. UP TO BATHROOM WITH STANDBY ASSIST. NPO EXCEPT ICECHIPS/MEDS. IVF INFUISING. WILL CONTINUE TO MONITOR.
[2020-01-17 07:30] VITALS: BP 174/76
[2020-01-17 16:21] VITALS: BP 142/84
--- NOTE | 2020-01-17 17:12 | NUR ---
ASSUMED CARE OF PATIENT AT APPROX 0730. ALERT AND OREINTED BUT VERY FORGETFUL AND CALLS OUT FREQUENTLY. COMPLAINT OF PAIN RATED AT 3 OUT OF 10, PATIENT CALLED APPROX EVERY 10-20 MINUTES ASKING FOR PAIN MEDICATION. EDUCATED PATIENT ON SAFE USE OF OPIOIDS AND THAT HE COULD NOT HAVE IV PAIN MEDICATION EVERY HOUR. TYLENOL GIVEN AND PATIENT RESTING QUIETLY AT THIS TIME. NEW ORDER FOR OXY IR OBTAINED BY PHYSICIAN, WILL START ORAL PAIN MANAGEMENT WITH NEXT CALL FOR PAIN MEDICATION. PATIENT UP AD FRANCIS IN THE ROOM. CALL LIGHT WITHIN REACH. HOURLY ROUNDS COMPLETED. WILL CONTINUE WITH PLAN OF CARE.
[2020-01-17 20:00] VITALS: BP 140/71
[2020-01-18 03:57] LABS: ABSOLUTE EOSINOPHILS 0.2 thou/uL (0.0-0.7); ABSOLUTE LYMPHOCYTES 1.1 thou/uL (0.8-5.3); ABSOLUTE MONOCYTES 0.6 thou/uL (0.0-1.2); ABSOLUTE NEUTROPHILS 4.2 thou/uL (1.6-8.1); BASOPHILS 0.6 %; EOSINOPHILS 3.6 %; HEMATOCRIT 37.7 % (42.0-52.0); HEMOGLOBIN 12.7 gm/dL (14.0-18.0); LYMPHOCYTES 17.3 %; MCH 29.5 pg (26.0-34.0); MCHC 33.7 g/dL (28.0-37.0); MCV 87.5 fL (80.0-100.0); MONOCYTES 9.6 %; MPV 8.2 fl. (7.2-11.1); NUCLEATED RBCS 0 /100WBC; PLATELET COUNT* 199 thou/uL (150-400); POLYS 68.9 %; WBC 6.1 thou/uL (4.0-11.0)
[2020-01-18 04:10] LABS: ALBUMIN 3.1 g/dL (3.4-5.0); CALCIUM 7.7 mg/dL (8.5-10.1); CREATININE 0.7 mg/dL (0.6-1.3); POTASSIUM 3.8 mmol/L (3.5-5.1); TOTAL BILIRUBIN 1.7 mg/dL (<0.1-1.0); TOTAL PROTEIN 6.7 g/dL (6.4-8.2)
[2020-01-18 05:23] LABS: ESR (SEDRATE) 32 mm/hr (0-20)
--- NOTE | 2020-01-18 07:23 | NUR ---
Alert and oriented x 3 but forgetful. He can be anxious and often asks questions repeatedly. He is up with stand by assist to the bathroom. Pain meds given x 1. He did sleep intermittenly. He has had nothing by mouth since midnight.
[2020-01-18 07:40] VITALS: BP 145/82
--- NOTE | 2020-01-18 18:43 | NUR ---
PT AOX3, FORGETFUL AT TIMES. PT PLEASANT, EGD DONE TODAY AND DIET ADVANCED TO CARDIAC. TOLERATED WELL. PT IS ON RA AND MAINTAINS O2 SATS. C/O MILD ABDOMINAL PAIN, RESOLVED WITH MEDS.
[2020-01-18 21:09] VITALS: BP 144/67
[2020-01-19] VITALS: BP 125/62
[2020-01-19 03:37] VITALS: BP 140/63
[2020-01-19 04:06] LABS: CREATININE 0.8 mg/dL (0.6-1.3); MAGNESIUM 1.6 mg/dL (1.8-2.4); POTASSIUM 3.9 mmol/L (3.5-5.1)
--- NOTE | 2020-01-19 04:43 | NUR ---
PT A&OX4, ON ROOM AIR, VSS, UP WITH ASSIST, SEIZURE PRECAUTINS IN PLACE. PAIN MED AND MYLANTA REQUESTED AND GIVEN ORDERED. WILL CONTINUE WITH PLAN OF CARE.
[2020-01-19 07:15] VITALS: BP 135/68
[2020-01-19] MEDS ORDERED: NORCO 5-325 TA1 EAC2 PO (08:19)
[2020-01-19] MEDS ORDERED: PANTOPRAZOLE SO40 M1 PO (08:19)
[2020-01-19] MEDS ORDERED: ONDANSETRON HCL4 M2 PO (08:19)
[2020-01-19 09:41] VITALS: BP 135/68
[2020-01-19 10:16] VITALS: BP 135/68
--- NOTE | 2020-01-19 11:03 | NUR ---
pt discharged to home with at 1100. ambulatory in [place] to private vehicle. pt given discharge instructions, belongings returned and IV removed. pt voiced no concerns, all questions answered.
--- NOTE | 2020-01-19 17:07 | PATH ---
[address] [address] PATHOLOGY RPT PROCEDURE Name: DANIE COFFEY Room: [address] IN .R.#: [id number] Admission: 01/16/20 Date of : 44 Discharge: 01/19/20 Report #: [id number] Path Case #: [id number] LCA Accession Number: [id number] . 01 Material submitted: . PART A: duodenum - DUODENAL EROSIONS IN SECOND PORTION OF DUODENUM. Modifiers: second PART B: stomach - ANTRAL BIOPSY FOR H. PYLORI . 01 Clinician provided ICD-10: K85.90 G92 . 02 Diagnosis: A. "Duodenal erosions in second portion of duodenum", biopsy: - Small bowel / duodenal mucosa with marked duodenitis including reactive/regenerative changes and superficial mucosal necrosis; no dysplasia seen (see comment). . B. "Antral biopsy for H. pylori", biopsy: - Gastric antral-type mucosa with mild reactive changes and minimal chronic inflammation. - Negative H. pylori immunohistochemical stain (block B1); control reacted appropriately. . (CLW:caitlin; 01/19/2020) QL 01/19/2020 1233 Local . 02 Comment: The marked duodenitis precludes the evaluation of celiac sprue changes in specimen A. Clinical and endoscopic correlation is required. . (CLW:caitlin; 01/19/2020) . 02 Electronically signed: . Courtney Gorman MD, Pathologist NPI- [id number] . 01 Gross description: . A. The specimen is received in formalin labeled "Danie Coffey, duodenal erosions in second portion of duodenum" and consists of 2 fragments of pink-echevarria tissue measuring 0.5 x 0.2 x 0.2 cm in aggregate which are entirely submitted in A1. . B. The specimen is received in formalin labeled "Danie Coffey, antral biopsy for H. pylori" and consists of 2 fragments of pink-echevarria tissue measuring 0.4 x 0.2 x 0.2 cm in aggregate which are entirely [place] [address] PATHOLOGY RPT PROCEDURE Name: DANIE COFFEY Room: [address] IN M.R.#: [id number] Admission: 01/16/20 Date of : 44 Discharge: 01/19/20 Report #: [id number] Path Case #: [id number] (JMF; 01/18/2020) JFQ/JFQ 01/18/2020 2215 Local . 02 Pathologist provided ICD-10: K29.80, K29.50 . 02 CPT . 167308, 259001, X66539 Specimen Comment: A courtesy copy of this report has been sent to [phone] Specimen Comment: [phone], Specimen Comment: Report sent to ,DR FRAZIER / DR PEGUERO Specimen Comment: A duplicate report has been generated due to demographic updates. Performed at: [address] [facility] [address], [place], [place] [id number] MD Rudi Hartman MD Phone: [phone] Performed at: 02 [facility] [place] [address] [facility] , [place], [place] [id number] MD Reji Rutledge MD Phone: [phone]
--- NOTE | 2020-01-25 11:06 | CON ---
[facility] [address] [place] [address] CONSULTATION Name: SHERIN COFFEY Room: [address] IN M.R.#: [id number] Admission: 01/16/20 Attend Phys: Valeria Velazquez Discharge: 01/19/20 Date of : 44 Report #: [id number] THIS REPORT FOR: //name// cc: Gisell Gifford MD, Katrina MD ~ THIS REPORT FOR: //name// CC: Gisell Hancock DO DATE OF SERVICE: 01/17/2020 REFERRING PHYSICIAN: Francisco Hancock DO REASON FOR CONSULTATION: Abdominal pain. IMPRESSION: 1. Upper abdominal pain, which is worse postprandially -- cannot rule out pancreatitis versus duodenitis versus ulcer disease or other causes. 2. History of pancreatitis in the past, thought to be related to simvastatin with sphincter of Oddi dysfunction being certainly a possibility. RECOMMENDATIONS: At the present time, to me it is unclear whether this represents pancreatitis or not. Though his clinical history is compatible with the same and he has had bouts of the same, I am not convinced that this is what is going on. I had recommended he discontinue simvastatin in the past, but he still continues to take his medication, which certainly could cause issues with his pancreatitis. In the interim, we will begin the patient on clear liquid diet, schedule the patient for an MRCP to be done tomorrow morning, and depending on results, we will proceed with upper endoscopy and possible ERCP and biliary sphincterotomy, stone extraction tomorrow afternoon. I have discussed the plans with the patient as well and he is agreeable to the same. 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 He is admitted to the hospital with complaints of abdominal pain, which began 3 days ago after eating a hamburger. He states the pain is mostly in the epigastric area without any radiation. He states the pain is similar to the pain he has had in the past, where he has been hospitalized for pancreatitis. He has undergone endoscopic ultrasounds post-hospital stay in the past which have been unrevealing on 2 different occasions. He has not had dilated biliary tree and he has never had elevated LFTs with the same. He has had definite evidence of elevation of his lipase with some peripancreatic stranding. [place] [address] CONSULTATION Name: SHERIN COFFEY Room: [address] IN M.R.#: [id number] Admission: 01/16/20 Attend Phys: Valeria Velazquez Discharge: 01/19/20 Date of : 44 Report #: [id number] for any chronic pancreatitis on endoscopic ultrasounds that were performed [address] Bajwa and Dr[address] Anand respectively. He is admitted to the hospital for further evaluation and treatment. ALLERGIES: None. CURRENT MEDICATIONS: At home include: 1. Namenda. 2. Sorine. 3. Vitamin B12. 4. Magnesium oxide. 5. Flomax. 6. Zestril. 7. Zocor. 8. [place] 3 fatty acids. 9. Aspirin. PAST MEDICAL AND SURGICAL HISTORY: Significant for problems with mitral valve repair. He has had history of atrial fibrillation, atrial flutter with previous cardioversion. He has had problem with early dementia. History of prostate cancer. He has had previous problems with anxiety and depression, heart valve repair, double inguinal hernia surgery in the past, cholecystectomy, tumor removed from his kidneys as well, seizure disorder. SOCIAL HISTORY: The patient does not smoke or drink. FAMILY HISTORY: Negative. PHYSICAL EXAMINATION: GENERAL: Pleasant 79-year-old gentleman who is awake and alert. CARDIOPULMONARY: Revealed a regular rate and rhythm. LUNGS: Clear. ABDOMEN: Soft. It is tender in the epigastric area. No rebound or guarding noted. LABORATORY DATA: Revealed a white count of 8.6, hemoglobin 13.0, platelet count 201,000, MCV is 86.7, RDW 16.7. His sodium is 137, potassium 3.8, chloride 102, bicarbonate is 26, BUN 13, creatinine 0.8, total bilirubin is 2.0, alkaline phosphatase is 79, AST 29, ALT 42. His albumin is 3.0. His direct bilirubin is 0.4 making most of it unconjugated hyperbilirubinemia compatible with Gilbert's. CT scan of the abdomen and pelvis performed on 01/16/2020 revealed mild hazy peripancreatic fat stranding around the pancreatic head, could represent pancreatitis versus duodenitis. Moderate sized hiatal hernia. He has diverticular disease within the sigmoid colon without diverticulitis. Remainder of the CT scan, he does have some well-circumscribed [place] [address] CONSULTATION Name: SHERIN COFFEY Room: [address] IN M.R.#: [id number] Admission: 01/16/20 Attend Phys: Valeria Velazquez Discharge: 01/19/20 Date of : 44 Report #: [id number] which have been stable and unchanged compatible with ____ cyst. No other major abnormalities noted. DISCUSSION: At the present time, it is unclear whether this represents pancreatitis or just plain duodenitis or duodenal ulcer disease. For this reason, we will proceed with MRCP tomorrow morning and then EGD and possible ERCP depending on what we find. I have discussed the plans with the patient as well and he is agreeable to the same. <ELECTRONICALLY SIGNED> By: Herb Payan DO 01/25/20 1106 1323 1731Herb Payan DO /nt
== END 2020-01-19 11:00 | disposition home or self-care (01) | DRG 391 ==
LOC: M.ERS 05:54 → M.ORTHSURG 08:46 → M.TBA-ER 08:46 → M.ORTHSURG 13:55
PROVIDERS: Internal Medicine; Personal Emergency Response Attendant; ADMIT Internal Medicine; ATTEND Internal Medicine
PROC: 0DB68ZX Excision of Stomach, Via Natural or Artificial Opening Endoscopic, Diagnostic (ICD-10-PCS; principal; 2020-01-16)
PROC: 0DB98ZX Excision of Duodenum, Via Natural or Artificial Opening Endoscopic, Diagnostic (ICD-10-PCS; 2020-01-16)
DX: K29.00 Acute gastritis without bleeding (principal); K85.90 Acute pancreatitis without necrosis or infection, unspecified; G92 Toxic encephalopathy; R45.851 Suicidal ideations; N39.0 Urinary tract infection, site not specified; F41.9 Anxiety disorder, unspecified; F32.9 Major depressive disorder, single episode, unspecified; I10 Essential (primary) hypertension; E78.5 Hyperlipidemia, unspecified; S61.459A Open bite of unspecified hand, initial encounter; E87.6 Hypokalemia; K64.9 Unspecified hemorrhoids; K44.9 Diaphragmatic hernia without obstruction or gangrene; K29.80 Duodenitis without bleeding; F03.90 Unspecified dementia, unspecified severity, without behavioral disturbance, psychotic disturbance, mood disturbance, and anxiety; Z81.8 Family history of other mental and behavioral disorders; Z90.49 Acquired absence of other specified parts of digestive tract; Z85.46 Personal history of malignant neoplasm of prostate; Z80.7 Family history of other malignant neoplasms of lymphoid, hematopoietic and related tissues; Z95.2 Presence of prosthetic heart valve; Z90.5 Acquired absence of kidney; Z82.49 Family history of ischemic heart disease and other diseases of the circulatory system; Z79.82 Long term (current) use of aspirin; Z79.899 Other long term (current) drug therapy; W54.0XXA Bitten by dog, initial encounter; Y93.89 Activity, other specified; Y92.89 Other specified places as the place of occurrence of the external cause; Y99.8 Other external cause status; Z86.73 Personal history of transient ischemic attack (TIA), and cerebral infarction without residual deficits

== ENCOUNTER → 2020-05-11 | Outpatient (CLI) | payer MEDICARE, BC ==
[~2020-05-11] MED LIST changes: +LISINOPRIL20 MG PO; +NORCO 5-325 TA1 EAC2 PO; +ONDANSETRON HCL4 M2 PO; +PANTOPRAZOLE SO40 M1 PO
--- NOTE | 2020-05-11 12:07 | 2DMMODE ---
[place] [address] 2 D/M-MODE ECHOCARDIOGRAM Name: SHERIN COFFEY Room: [facility]#: [id number] Admission: 05/11/20 Attend Phys: Cisco Emmanuel, Discharge: Date of : 44 Date of Service: 05/11/20 1206 Report #: [id number] THIS REPORT FOR: cc: Gisell Gifford MD, Katrina MD Holkins, John M. MD [facility] ~ APPROVED REPORT Study performed: 05/11/2020 10:20:17 EXAM: Comprehensive 2D, Doppler, and color-flow Echocardiogram Patient Location: Out-Patient BSA: 1.98 HR: 54 bpm BP: 130/70 mmHg Other Information Study Quality: Good Indications Mitral Valve Disease 2D Dimensions IVSd: 12.05 (7-11mm) LVOT Diam: 20.64 (18-24mm) LVDd: 48.55 mm PWd: 10.93 (7-11mm) Ascending Ao: 31.05 (22-36mm) LVDs: 26.02 (25-40mm) Aortic Root: 33.41 mm Volumes Left Atrial Volume (Systole) LA ESV Index: 22.70 mL/m2 Aortic Valve AoV Peak Wilson.: 0.85 m/s AO Peak Gr.: 2.89 mmHg LVOT Max P.47 mmHg AO Mean Gr.: 1.56 mmHg LVOT Mean P.09 mmHg LVOT Max V: 0.79 m/s AO V2 VTI: 20.00 cm LVOT Mean V: 0.47 m/s DHEERAJ (VTI): 3.34 cm2 LVOT V1 VTI: 19.98 cm Mitral Valve MV Peak Gr.: 7.[place] [address] 2 D/M-MODE ECHOCARDIOGRAM Name: SHERIN COFFEY Room: [facility]#: [id number] Admission: 05/11/20 Attend Phys: Cisco Emmanuel, Discharge: Date of : 44 Date of Service: 05/11/20 1206 Report #: [id number] MV Mean Gr.: 2.33 mmHg E/A Ratio: 1.33 MV Decel. Time: 273.50 ms MV E Max Wilson.: 1.06 m/s MV PHT: 79.31 ms MVA (PHT): 2.77 cm2 TDI E/Lateral E': 13.25 E/Medial E': 17.67 Medial E' Wilson.: 0.06 m/s Lateral E' Wilson.: 0.08 m/s Pulmonary Valve PV Peak Wilson.: 0.75 m/s PV Peak Gr.: 2.28 mmHg Tricuspid Valve RAP Estimate: 5.00 mmHg TR Peak Gr.: 30.52 mmHg RVSP: 35.52 mmHg PA Pressure: 35.52 mmHg Left Ventricle The left ventricle is normal size. There is normal LV segmental wall motion. There is normal left ventricular wall thickness. Left ventricular systolic function is normal. The left ventricular ejection fraction is within the normal range. LVEF is 55-60%. The left ventricular diastolic function is normal. Right Ventricle The right ventricle is normal size. The right ventricular systolic function is normal. Atria Left atrium is mildly dilated. The right atrium size is normal. Aortic Valve Mild aortic valve sclerosis. Mild aortic regurgitation. There is no aortic valvular stenosis. Mitral Valve Mitral valve repair There is mitral annular calcification. Trace mitral regurgitation. No evidence of mitral valve stenosis. Tricuspid Valve The tricuspid valve is normal in structure. Mild [place] [address] 2 D/M-MODE ECHOCARDIOGRAM Name: SHERIN COFFEY Room: [facility]#: [id number] Admission: 05/11/20 Attend Phys: Cisco Emmanuel, Discharge: Date of : 44 Date of Service: 05/11/20 1206 Report #: [id number] Pulmonic Valve The pulmonary valve is normal in structure. Mild pulmonic regurgitation. Great Vessels The aortic root is normal in size. IVC is normal in size and collapses >50% with inspiration. Pericardium There is no pericardial effusion. <Conclusion> There is normal left ventricular wall thickness. Left ventricular systolic function is normal. The left ventricular ejection fraction is within the normal range. LVEF is 55-60%. The left ventricular diastolic function is normal. The right ventricle is normal size. Left atrium is mildly dilated. Mild aortic valve sclerosis. Mild aortic regurgitation. There is no aortic valvular stenosis. Mitral valve repair There is mitral annular calcification. Trace mitral regurgitation. No evidence of mitral valve stenosis. The tricuspid valve is normal in structure. Mild tricuspid regurgitation. There is no pericardial effusion. There is normal LV segmental wall motion. <ELECTRONICALLY SIGNED> By: Lauri Blackwell MD, FACC 05/11/201205 05 05 Lauri Blackwell MD, FACC /INF
== END ==
LOC: M.CRD
PROVIDERS: ATTEND Internal Medicine Cardiovascular Disease
DX: I08.8 Other rheumatic multiple valve diseases (principal)